=== PATIENT | male | born 1950 | race Hispanic/Latino ===

== ENCOUNTER 2017-02-01 17:10 | Observation (INO) | payer MEDICARE, BC ==
[2017-02-01 17:11] VITALS: BMI 28.1
--- NOTE | 2017-02-01 17:33 | ED PDOC ---
"Arrival/HPI - General Historian: Patient - General Chief Complaint: Alcohol Ingestion Time Seen by Provider: 02/01/17 17:28 - History of Present Illness Narrative History of Present Illness (Text): 02/01/17 17:56 66yo male BIBA for alcohol intoxication. Patient was picked up from a bar. Patient admits drinking alcohol. states he tripped and fell on his face. He denies any current somatic pain. (Cecelia Puentes) Past Medical History - Provider Review Nursing Documentation Reviewed: Yes - Past History Past History: Non-Contributing - Infectious Disease Hx of Infectious Diseases: None - Tetanus Immunization Tetanus Immunization: Unknown - Cardiac Hx Cardiac Disorders: Yes Hx Hypertension: Yes - Pulmonary Hx Respiratory Disorders: Yes Hx Asthma: Yes Hx Chronic Obstructive Pulmonary Disease (COPD): Yes - Neurological Hx Neurological Disorder: No - HEENT Hx HEENT Disorder: Yes Hx Cataracts: Yes Hx Deafness: Yes (left ear/congenital) - Renal Hx Renal Disorder: No - Endocrine/Metabolic Hx Endocrine Disorders: No - Hematological/Oncological Hx Blood Disorders: No - Integumentary Hx Dermatological Disorder: No - Musculoskeletal/Rheumatological Hx Musculoskeletal Disorders: No - Gastrointestinal Hx Gastrointestinal Disorders: No - Genitourinary/Gynecological Hx Genitourinary Disorders: No - Psychiatric Hx Psychophysiologic Disorder: No Hx Substance Use: No - Past Surgical History Past Surgical History: No Previous - Surgical History Hx Appendectomy: Yes Hx Tonsillectomy: Yes Other/Comment: polyps removed from right ear - Anesthesia Hx Anesthesia: Yes Hx Anesthesia Reactions: No Hx Malignant Hyperthermia: No - Suicidal Assessment Feels Threatened In Home Enviroment: No Family/Social History - Physician Review Nursing Documentation Reviewed: Yes Family/Social History: Unknown Family HX Smoking Status: Never Smoked Hx Alcohol Use: Yes Hx Substance Use: No Hx Substance Use Treatment: No Allergies/Home Meds Allergies/Adverse Reactions: Allergies aspirin Adverse Reaction (Verified 02/01/17 17:20) COUGH wheezing ibuprofen [From Motrin] Adverse Reaction (Verified 02/01/17 17:20) COUGH wheezing/eye redness Home Medications: Home Meds Medication Instructions Recorded Confirmed No Known Home Med 02/01/17 02/01/17 Review of Systems - Review of Systems Systems not reviewed;Unavailable: Intoxicated Constitutional: Normal Eyes: Normal ENT: Normal Respiratory: Normal Cardiovascular: Normal Gastrointestinal: Normal Genitourinary Male: Normal Musculoskeletal: Normal Skin: Normal Neurological: Normal Endocrine: Normal Hemo/Lymphatic: Normal Psychiatric: Normal Physical Exam - Physical Exam Physical Exam Limitations: Intoxication Vital Signs Reviewed: Yes Temperature: Afebrile Blood Pressure: Normal Pulse: Regular Respiratory Rate: Normal Appearance: Positive for: Well-Appearing, Non-Toxic, Comfortable, Other ( Alcohol intoxication) Pain Distress: None Mental Status: Positive for: Alert and Oriented X 3 - Systems Exam Head: Present: Atraumatic, Normocephalic Pupils: Present: PERRL Extroacular Muscles: Present: EOMI Conjunctiva: Present: Normal Mouth: Present: Moist Mucous Membranes Neck: Present: Normal Range of Motion Respiratory/Chest: Present: Clear to Auscultation, Good Air Exchange. No: Respiratory Distress, Accessory Muscle Use Cardiovascular: Present: Regular Rate and Rhythm, Normal S1, S2. No: Murmurs Abdomen: Present: Normal Bowel Sounds. No: Tenderness, Distention, Peritoneal Signs Back: Present: Normal Inspection Upper Extremity: Present: Normal Inspection. No: Cyanosis, Edema Lower Extremity: Present: Normal Inspection. No: Edema Neurological: Present: GCS=15, CN II-XII Intact, Speech Normal Skin: Present: Warm, Dry, Normal Color. No: Rashes Psychiatric: Present: Alert, Oriented x 3, Normal Insight, Normal Concentration Vital Signs Temp Pulse Resp BP Pulse Ox 02/02/17 04:45 86 16 140/90 98 02/01/17 19:15 98.3 F 75 18 118/78 95 02/01/17 17:10 98 F 98 H 18 148/92 H 96 Medical Decision Making ED Course and Treatment: 02/01/17 22:17 PT biba for stated history. He was placed in ED for observation pending sobriety. He was neurologically intact in ED. Ambulatory with a steady gait. His alcohol level was 298. The abrasion on his nose was irrigated and bacitracine applied. Head CT IMPRESSION: No acute findings. [facility] | Preliminary Radiology Report PRICING ANALYST (QA) DISCREPANCY? If there is a discrepancy between the preliminary and final interpretation, please notify [facility] via [email or web address]. 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 Thank you for allowing us to participate in the care of your patient. 02/02/17 01:36 Pt sleeping comfortable in ED. Hemodynamically stable in ED. He is pending sobriety. He was endorsed to Dr. Pozo to evaluate and dispo pt. (Cecelia Puentes A) - RAD Interpretation Radiology Orders: 02/01/17 17:55 HEAD W/O CONTRAST [CT] Stat - Medication Orders Current Medication Orders: Discontinued Medications Lorazepam (Ativan) 1 mg IM ONCE STA PRN Reason: Protocol Stop: 02/01/17 22:37 Lorazepam (Ativan) 2 mg IM ONCE STA PRN Reason: Protocol Stop: 02/01/17 22:37 Last Admin: 02/01/17 22:57 Dose: 2 mg ED OBSERVATION Discharge: Yes Date of observation admission: 02/01/17 Time of observation admission: 17:30 - Observation admission statement Patient is being placed in observation because:: Placed on observation pending sobriety (Deloris,Happiness A) - Goals of Observation Goals of observation are:: Placed on observation pending sobriety (Deloris,Happiness A) - Progress Note Progress Note: Pt awake, alert, ambulatory in Emergency department, and requesting to be d/c home. Pt stable for d/c. (Hakan Pozo) Disposition/Present on Arrival - Present on Arrival Any Indicators Present on Arrival: No History of DVT/PE: No History of Uncontrolled Diabetes: No Urinary Catheter: No History of Decub. Ulcer: No History Surgical Site Infection Following: None - Disposition Have Diagnosis and Disposition been Completed?: Yes Disposition Time: 03:00 - Disposition Diagnosis: Alcohol intoxication Disposition: HOME/ ROUTINE Condition: STABLE"
[2017-02-01 19:16] VITALS: TEMP 98.3
[2017-02-01 19:43] LABS: ADD MANUAL DIFF? NO
[2017-02-01 19:59] LABS: ALB/GLOB RATIO 1.4 (1.1-1.8); ALKALINE PHOSPHATASE 60 U/L (38-133); ALT/SGPT 70 U/L (7-56); AST/SGOT 54 U/L (15-59); BILIRUBIN,TOTAL 0.5 mg/dL (0.2-1.3); BLOOD UREA NITROGEN 19 mg/dL (7-21); CALCIUM 8.7 mg/dL (8.4-10.5); CARBON DIOXIDE 29 mmol/L (21-33); CHLORIDE 109 mmol/L (98-107); GFR AFRICAN-AMERICAN > 60; GLUCOSE,RANDOM 101 mg/dL (70-110); POTASSIUM 4.3 mmol/L (3.6-5.0); SODIUM 148 mmol/L (132-148); TOTAL PROTEIN 7.3 g/dL (5.8-8.3)
[2017-02-01 20:06] LABS: BASO # 0.01 K/mm3 (0.0-2.0); BASO % 0.1 % (0.0-3.0); EOS % 0.4 % (1.5-5.0); GRAN # 6.51 (1.4-6.5); GRAN % 69.9 % (50.0-68.0); HEMATOCRIT 47.6 % (42.0-52.0); LYMPH # 2.2 (1.2-3.4); LYMPH % 23.1 % (22.0-35.0); MEAN CELL VOLUME 97.3 fL (80.0-105.0); MEAN CORPUSCULAR HEMOGLOBIN 32.9 pg (25.0-35.0); MEAN CORPUSCULAR HGB CONC 33.8 g/dl (31.0-37.0); MEAN PLATELET VOLUME 9.9 fl (7.0-11.0); MONO # 0.6 (0.1-0.6); MONO % 6.5 % (1.0-6.0); PLATELET COUNT 141 10^3/uL (120.0-450.0); WHITE BLOOD COUNT 9.3 10^3/ul (4.5-11.0)
[2017-02-02 04:46] VITALS: BP 140/90; PULSE 86; RESP 16; O2SAT 98
--- NOTE | 2017-02-02 08:12 | CT ---
PROCEDURE: CT HEAD WITHOUT CONTRAST. HISTORY: head trauma COMPARISON: None available. TECHNIQUE: Axial computed tomography images were obtained through the head/brain without intravenous contrast. Radiation dose: Total exam DLP = 774 mGy-cm. This CT exam was performed using one or more of the following dose reduction techniques: Automated exposure control, adjustment of the mA and/or kV according to patient size, and/or use of iterative reconstruction technique. FINDINGS: HEMORRHAGE: No intracranial hemorrhage. BRAIN: No mass effect or edema. Chronic microvascular ischemic changes. VENTRICLES: Unremarkable. No hydrocephalus. CALVARIUM: Unremarkable. PARANASAL SINUSES: Unremarkable as visualized. No significant inflammatory changes. MASTOID AIR CELLS: Unremarkable as visualized. No inflammatory changes. OTHER FINDINGS: None. IMPRESSION: No intracranial hemorrhage
== END 2017-02-02 04:43 | disposition home or self-care (01) ==
LOC: ED 17:10 → EROBSV 18:06
PROVIDERS: ADMIT Emergency Medicine; ATTEND Emergency Medicine
DX: F10.129 Alcohol abuse with intoxication, unspecified (principal); Y90.8 Blood alcohol level of 240 mg/100 ml or more
CPT/HCPCS: 36415; 70450; 80053; 85025; 96372; 99284; G0378; G0480; J2060

== ENCOUNTER 2017-07-22 11:20 | Inpatient (IN) | payer MEDICARE, BC ==
[2017-07-22 11:49] VITALS: BMI 27.3
[2017-07-22] MEDS ORDERED: Morphine 2 mg/ml ISec IVP STA (11:49)
[2017-07-22] MEDS ORDERED: Pantoprazole 40 MG in Sodium Chloride 0.9% 100 ML IV STA (11:49)
--- NOTE | 2017-07-22 12:03 | ED PDOC ---
Arrival/HPI - General Chief Complaint: Abdominal Pain Time Seen by Provider: 07/22/17 11:37 Historian: Patient - History of Present Illness Narrative History of Present Illness (Text): 07/22/17 12:00 66yo male with PMhx of hypertension and COPD present with complaint of sudden LUQ abdominal pain this morning. States pain is sharp and constant. Denies nausea, vomiting, diarrhea, melena, hematochezia, hematemesis, chest pain, SOB, tearing/ripping upper back pain, any other complaint. Past Medical History - Provider Review Nursing Documentation Reviewed: Yes - Past History Past History: Non-Contributing - Infectious Disease Hx of Infectious Diseases: None - Tetanus Immunization Tetanus Immunization: Unknown - Cardiac Hx Cardiac Disorders: Yes Hx Hypertension: Yes - Pulmonary Hx Respiratory Disorders: Yes Hx Asthma: Yes Hx Chronic Obstructive Pulmonary Disease (COPD): Yes - Neurological Hx Neurological Disorder: No - HEENT Hx HEENT Disorder: Yes Hx Cataracts: Yes Hx Deafness: Yes (left ear/congenital) - Renal Hx Renal Disorder: No - Endocrine/Metabolic Hx Endocrine Disorders: No - Hematological/Oncological Hx Blood Disorders: No - Integumentary Hx Dermatological Disorder: No - Musculoskeletal/Rheumatological Hx Musculoskeletal Disorders: No - Gastrointestinal Hx Gastrointestinal Disorders: No - Genitourinary/Gynecological Hx Genitourinary Disorders: No - Psychiatric Hx Psychophysiologic Disorder: No Hx Substance Use: No - Past Surgical History Past Surgical History: No Previous - Surgical History Hx Appendectomy: Yes Hx Tonsillectomy: Yes Other/Comment: polyps removed from right ear - Anesthesia Hx Anesthesia: Yes Hx Anesthesia Reactions: No Hx Malignant Hyperthermia: No - Suicidal Assessment Feels Threatened In Home Enviroment: No Family/Social History - Physician Review Nursing Documentation Reviewed: Yes Family/Social History: Unknown Family HX Smoking Status: Never Smoked Hx Alcohol Use: Yes Hx Substance Use: No Hx Substance Use Treatment: No Allergies/Home Meds Allergies/Adverse Reactions: Allergies aspirin Adverse Reaction (Verified 07/22/17 15:14) COUGH wheezing ibuprofen [From Motrin] Adverse Reaction (Verified 07/22/17 15:14) COUGH wheezing/eye redness Home Medications: Home Meds Medication Instructions Recorded Confirmed Aclidinium [place] [Tudorza 400 mcg IH DAILY 07/22/17 07/22/17 Pressair] Albuterol 0.083% [Albuterol 3 ml IH Q6 PRN 07/22/17 07/22/17 Sulfate 3 Ml] Atorvastatin [Lipitor] 40 mg PO DAILY 07/22/17 07/22/17 Fluticasone/Vilanterol [Breo 1 each IH DAILY 07/22/17 07/22/17 Ellipta 100-25 Mcg INH] Metoprolol Succinate [Toprol XL] 25 mg PO DAILY 07/22/17 07/22/17 Voriconazole [Vfend] 200 mg PO BID 07/22/17 07/22/17 amLODIPine [Norvasc] 10 mg PO DAILY 07/22/17 07/22/17 predniSONE [Prednisone] 20 mg PO DAILY 07/22/17 07/22/17 Review of Systems - Physician Review All systems were reviewed & negative as marked: Yes - Review of Systems Constitutional: Normal Eyes: Normal ENT: Normal Respiratory: Normal Cardiovascular: Normal Gastrointestinal: Abdominal Pain. absent: Constipation, Diarrhea, Nausea, Vomiting, Hematochezia, Hematemesis Genitourinary Male: Normal Musculoskeletal: Normal Skin: Normal Neurological: Normal Endocrine: Normal Hemo/Lymphatic: Normal Psychiatric: Normal Physical Exam Vital Signs Reviewed: Yes Vital Signs Temp Pulse Resp BP Pulse Ox 07/22/17 17:18 98 H 20 171/106 H 95 07/22/17 16:02 97.7 F 91 H 18 167/100 H 07/22/17 11:46 97.7 F 91 H 18 167/100 H 98 Temperature: Afebrile Blood Pressure: Hypertensive Pulse: Regular Respiratory Rate: Normal Appearance: Positive for: Well-Appearing, Non-Toxic, Uncomfortable Pain Distress: Moderate Mental Status: Positive for: Alert and Oriented X 3 - Systems Exam Head: Present: Atraumatic, Normocephalic Pupils: Present: PERRL Extroacular Muscles: Present: EOMI Conjunctiva: Present: Normal Mouth: Present: Moist Mucous Membranes Neck: Present: Normal Range of Motion Respiratory/Chest: Present: Clear to Auscultation, Good Air Exchange. No: Respiratory Distress, Accessory Muscle Use Cardiovascular: Present: Regular Rate and Rhythm, Normal S1, S2. No: Murmurs Abdomen: Present: Tenderness (LUQ tenderness), Normal Bowel Sounds, Guarding, Other (soft). No: Distention, Peritoneal Signs, Rebound, McBurney's Point Tender, Rovsing's Sign Present Back: Present: Normal Inspection Upper Extremity: Present: Normal Inspection. No: Cyanosis, Edema Lower Extremity: Present: Normal Inspection. No: Edema Neurological: Present: GCS=15, CN II-XII Intact, Speech Normal Skin: Present: Warm, Dry, Normal Color. No: Rashes Psychiatric: Present: Alert, Oriented x 3, Normal Insight, Normal Concentration Medical Decision Making ED Course and Treatment: 07/22/17 20:27 66yo male present with stated history. He was in pain in ED and his pain was controlled in ED temporary with medication Lab was nonspecific. Abdominal/Pelvis CT IMPRESSION: Left lower renal pole intra collecting system calculus cluster measuring up to 6 mm as detailed above. No hydronephrosis. No ureteral calculi an no bladder calculi Less dense sub cm hyperdensity posterior left upper renal pole -an incidental tiny hemorrhagic lesion benign and/or malignant is 1 consideration. Less dense nonspecific renal parenchymal calcification here is another. The appearance is indeterminate. Consider targeted ultrasound Exophytic right lower renal pole cystic mass renal ultrasound for further characterisation recommended Left lower lobe subsegmental consolidation ; consider CT chest for further evaluation Atherosclerotic vascular calcifications s Tatus post appendectomy. Blood culture is pending PT started on Zithromax and Rocephin to cover for CAP. The radiologist recommended chest CT and Ct angio was ordered secondary to elevated D dimer. Chest CT IMPRESSION: . No pulmonary embolus. Posteromedial left lower lobe segmental consolidation/atelectasis. A more proximal endobronchial occluding lesion needs to be considered. - a mucus plug is not excluded. No gross extrinsic compression masses noted. Follow-up recommended probably right lower lobe posteromedial strandy and slightly nodular postinflammatory like changes. Follow-up here also advised. Case was DW Dr. Shankar and pt was admitted to his service. - Lab Interpretations Lab Results: 07/22/17 11:40 07/22/17 11:40 Lab Results 07/22/17 13:45: Lactic Acid 1.8 07/22/17 13:45: D-Dimer, Quantitative 435 H 07/22/17 11:40: pO2 67 H, VBG pH 7.44 H, VBG pCO2 44.0, VBG HCO3 29.9 H, VBG Total CO2 31.3 H, VBG O2 Sat (Calc) 93.6 H, VBG Base Excess 5.0 H, VBG Potassium 5.2, Sodium 139.0, Chloride 104.0, Glucose 93, Lactate 2.1, FiO2 21.0 , Venous Blood Potassium 5.2 07/22/17 11:40: Sodium 140, Chloride 103, Potassium 3.7, Carbon Dioxide 28, Anion Gap 13, BUN 18, Creatinine 0.8, Est GFR ( Amer) > 60, Est GFR (Non- Af Amer) > 60, Random Glucose 91, Calcium 8.8, Total Bilirubin 0.6, AST 30, ALT 31, Alkaline Phosphatase 70, Lactate Dehydrogenase 484, Total Creatine Kinase 107, Troponin I < 0.01, Total Protein 7.6, Albumin 4.5, Globulin 3.1, Albumin/ Globulin Ratio 1.4, Amylase 55, Lipase 54 07/22/17 11:40: PT 10.7, INR 0.97, APTT 24.0 L 07/22/17 11:40: WBC 9.5, RBC 5.03, Hgb 16.2, Hct 47.0, MCV 93.4, MCH 32.2, MCHC 34.5, RDW 14.0, Plt Count 151, MPV 10.1, Gran % 64.9, Lymph % (Auto) 23.6, [place] % (Auto) 6.6 H, Eos % (Auto) 4.5, Baso % (Auto) 0.4, Gran # 6.15, Lymph # 2.2, [place] # 0.6, Eos # 0.4, Baso # 0.04 - RAD Interpretation Radiology Orders: 07/22/17 11:49 ABD & PELVIS W/O PO OR IV CONT [CT] Stat 07/22/17 14:28 ANGIO CHEST PE PROTOCOL [CT] Stat - Medication Orders Current Medication Orders: Acetaminophen (Tylenol 325mg Tab) 650 mg PO Q6H PRN PRN Reason: Pain, severe (8-10) Acetylcysteine (Acetylcysteine 20%) 4 ml IH Q6 [facility] Last Admin: 07/22/17 19:54 Dose: 4 ml Benzonatate (Tessalon Perles) 100 mg PO TID PRN PRN Reason: Cough Chlordiazepoxide (Librium) 25 mg PO Q6 [facility] PRN Reason: Taper Stop: 07/26/17 19:59 Chlordiazepoxide (Librium) 25 mg PO Q4H PRN PRN Reason: Withdrawl Clonidine HCl (Catapres) 0.1 mg PO Q6H PRN PRN Reason: SBP>=170 &/OR DBP>=100MMHG Enoxaparin Sodium (Lovenox) 40 mg SC DAILY [facility] PRN Reason: Protocol Folic Acid (Folic Acid) 1 mg PO DAILY [facility] Hydromorphone HCl (Dilaudid) 0.5 mg IVP Q4H PRN PRN Reason: Pain, moderate (4-7) Multivitamins/Vitamin C 10 ml/Thiamine HCl 100 mg/ Folic Acid 1 mg/ Sodium Chloride 1,011.2 mls @ 100 mls/hr IV .Q10H7M ONE Stop: 07/23/17 01:11 Last Admin: 07/22/17 16:49 Dose: 100 mls/hr eMAR Start Stop Document 07/22/17 16:49 KKL (Rec: 07/22/17 16:49 KK [id number]) Intravenous Solution Start Date 07/22/17 Start Time 16:30 Doxycycline Hyclate 100 mg/ (Sodium Chloride) 100 mls @ 100 mls/hr IVPB Q12 [facility] PRN Reason: Protocol Ceftriaxone Sodium (Rocephin 1 Gram Ivpb (D5w)) 1 gm in 100 mls @ 100 mls/hr IVPB DAILY [facility] PRN Reason: Protocol Piperacillin Sod/Tazobactam Sod (Zosyn 3.375 In Ns 100ml) 100 mls @ 200 mls/hr IVPB Q6 [facility] PRN Reason: Protocol Stop: 07/23/17 00:29 Last Admin: 07/22/17 18:53 Dose: 200 mls/hr eMAR Start Stop Document 07/22/17 18:53 LO (Rec: 07/22/17 18:54 LO [id number]) Intravenous Solution Start Date 07/22/17 Start Time 18:54 End Date 07/22/17 End time 19:24 Total Infusion Time 30 Levalbuterol HCl (Xopenex) 0.63 mg IH Q6 [facility] Last Admin: 07/22/17 19:54 Dose: 0.63 mg Lorazepam (Ativan) 0.5 mg IVP Q6 PRN; Protocol PRN Reason: Symptoms of alcohol withdrawl Methylprednisolone (Solu-Medrol) 40 mg IVP Q8H [facility] Ondansetron HCl (Zofran Inj) 4 mg IVP Q4H PRN PRN Reason: Nausea/Vomiting Pantoprazole Sodium (Protonix Ec Tab) 40 mg PO 0600,1600 [facility] Thiamine HCl (Vitamin B1 Inj) 100 mg IV DAILY [facility] Stop: 07/25/17 10:01 Discontinued Medications Acetylcysteine (Acetylcysteine 20%) 4 ml IH Q6 [facility] Albuterol/Ipratropium (Duoneb 3 Mg/0.5 Mg (3 Ml) Ud) 3 ml IH STAT STA Stop: 07/22/17 13:42 Last Admin: 07/22/17 14:23 Dose: 3 ml Albuterol/Ipratropium (Duoneb 3 Mg/0.5 Mg (3 Ml) Ud) 3 ml IH Q2 PRN PRN Reason: Shortness of Breath Stop: 07/22/17 20:01 Hydromorphone HCl (Dilaudid) 2 mg IVP STAT STA Stop: 07/22/17 13:21 Last Admin: 07/22/17 13:20 Dose: 2 mg [facility] [place] Pain Assessment Document 07/22/17 13:20 KK (Rec: 07/22/17 13:36 [id number] Pain Reassessment Is this a pain reassessment? Yes Sleep Is patient sleeping during reassessment? No Presence of Pain Presence of Pain Yes Pain Scale Used Pain Scale Used Numeric Location Left, Right or Bilateral Left Upper or Lower Upper Pain Location Body Site Abdomen Description Intensity of Pain at present 10 IVP Administration Document 07/22/17 13:20 KK (Rec: 07/22/17 13:36 [id number][facility] Charges for Administration # of IVP Administrations 2 Re-Assess: [facility] [place] Pain Assessment Document 07/22/17 14:00 KK (Rec: 07/22/17 15:30 [id number][facility] Pain Reassessment Is this a pain reassessment? Yes Sleep Is patient sleeping during reassessment? No Presence of Pain Presence of Pain Yes Pain Scale Used Pain Scale Used Numeric Location Left, Right or Bilateral Left Upper or Lower Upper Pain Location Body Site Abdomen Description Description Stabbing Intensity of Pain at present 5 Acceptable Level of Pain 3 Pantoprazole Sodium 40 mg/ (Sodium Chloride) 100 mls @ 400 mls/hr IV STAT STA Stop: 07/22/17 12:03 Last Admin: 07/22/17 12:16 Dose: 400 mls/hr eMAR Start Stop Document 07/22/17 12:16 KKL (Rec: 07/22/17 12:16 [id number]) Intravenous Solution Start Date 07/22/17 Start Time 12:16 Sodium Chloride (Sodium Chloride 0.9%) 1,000 mls @ 250 mls/hr IV .Q4H ONE Stop: 07/22/17 17:40 Last Admin: 07/22/17 14:24 Dose: 250 mls/hr eMAR Start Stop Document 07/22/17 14:24 KKL (Rec: 07/22/17 14:24 [id number]) Intravenous Solution Start Date 07/22/17 Start Time 14:00 End time 14:15 Ceftriaxone Sodium (Rocephin 1 Gram Ivpb (D5w)) 1 gm in 100 mls @ 200 mls/hr IVPB STAT STA PRN Reason: Protocol Stop: 07/22/17 14:27 Last Admin: 07/22/17 14:23 Dose: 200 mls/hr eMAR Start Stop Document 07/22/17 14:23 KKL (Rec: 07/22/17 14:23 [id number]) Intravenous Solution Start Date 07/22/17 Start Time 14:23 Levalbuterol HCl (Xopenex) 0.63 mg IH Q6 [facility] Methylprednisolone (Solu-Medrol) 125 mg IVP STAT STA Stop: 07/22/17 13:43 Last Admin: 07/22/17 14:24 Dose: 125 mg IVP Administration Document 07/22/17 14:24 KK (Rec: 07/22/17 14:24 [id number]) Charges for Administration # of IVP Administrations 1 Morphine Sulfate (Morphine) 4 mg IVP STAT STA Stop: 07/22/17 11:50 Last Admin: 07/22/17 12:14 Dose: 4 mg MAR Pain Assessment Document 07/22/17 12:14 KKL (Rec: 07/22/17 12:15 [id number] Pain Reassessment Is this a pain reassessment? No Sleep Is patient sleeping during reassessment? No Presence of Pain Presence of Pain Yes Pain Scale Used Pain Scale Used Numeric Location Left, Right or Bilateral Left Upper or Lower Upper Pain Location Body Site Abdomen Description Description Stabbing Intensity of Pain at present 10 Pain Behavior Guarding Irritability Grasping Site Restlessness Perspiration Facial Grimacing IVP Administration Document 07/22/17 12:14 [facility] (Rec: 07/22/17 12:15 [id number]) Charges for Administration # of IVP Administrations 1 Re-Assess: MARIBETH Pain Assessment Document 07/22/17 13:14 [facility] (Rec: 07/22/17 13:35 [id number]) Pain Reassessment Is this a pain reassessment? Yes Sleep Is patient sleeping during reassessment? No Presence of Pain Presence of Pain Yes Pain Scale Used Pain Scale Used Numeric Location Left, Right or Bilateral Left Upper or Lower Upper Pain Location Body Site Abdomen Description Intensity of Pain at present 10 Pneumococcal Polyvalent Vaccine (Pneumovax 23 Vaccine) 0.5 ml IM .ONCE ONE Stop: 07/22/17 16:30 Disposition/Present on Arrival - Present on Arrival Any Indicators Present on Arrival: No History of DVT/PE: No History of Uncontrolled Diabetes: No Urinary Catheter: No History of Decub. Ulcer: No History Surgical Site Infection Following: None - Disposition Have Diagnosis and Disposition been Completed?: Yes Diagnosis: Pneumonia, Renal colic Disposition: HOSPITALIZED Disposition Time: 14:00 Patient Problems: Current Active Problems Problem Status Onset Pneumonia Acute Renal colic Acute Condition: [facility]
[2017-07-22 12:40] LABS: BASO # 0.04 K/mm3 (0.0-2.0); BASO % 0.4 % (0.0-3.0); EOS # 0.4 (0.0-0.7); EOS % 4.5 % (1.5-5.0); GRAN # 6.15 (1.4-6.5); GRAN % 64.9 % (50.0-68.0); LYMPH # 2.2 (1.2-3.4); LYMPH % 23.6 % (22.0-35.0); MEAN CELL VOLUME 93.4 fl (80.0-105.0); MEAN CORPUSCULAR HEMOGLOBIN 32.2 pg (25.0-35.0); MEAN CORPUSCULAR HGB CONC 34.5 g/dl (31.0-37.0); MEAN PLATELET VOLUME 10.1 fl (7.0-11.0); MONO # 0.6 (0.1-0.6); MONO % 6.6 % (1.0-6.0); WHITE BLOOD COUNT 9.5 10^3/ul (4.5-11.0)
[2017-07-22 12:44] LABS: VENOUS BLOOD PH 7.44 (7.32-7.43)
[2017-07-22 12:52] LABS: INR 0.97 (0.93-1.08)
[2017-07-22 13:03] LABS: TROPONIN I < 0.01 ng/mL
[2017-07-22 13:05] LABS: ALB/GLOB RATIO 1.4 (1.1-1.8); ALKALINE PHOSPHATASE 70 U/L (38-126); ALT/SGPT 31 U/L (7-56); AMYLASE 55 U/L (35-125); AST/SGOT 30 U/L (17-59); BILIRUBIN,TOTAL 0.6 mg/dL (0.2-1.3); BLOOD UREA NITROGEN 18 mg/dL (7-21); CALCIUM 8.8 mg/dL (8.4-10.5); CARBON DIOXIDE 28 mmol/L (21-33); CHLORIDE 103 mmol/L (98-107); GFR AFRICAN-AMERICAN > 60; GLUCOSE,RANDOM 91 mg/dL (70-110); POTASSIUM 3.7 mmol/L (3.6-5.0); SODIUM 140 mmol/L (132-148); TOTAL PROTEIN 7.6 g/dL (5.8-8.3)
--- NOTE | 2017-07-22 13:18 | CT ---
PROCEDURE: CT Abdomen and Pelvis without intravenous contrast HISTORY: abdominal pain COMPARISON: None. TECHNIQUE: Technique. Contrast Dose: Radiation dose: Total exam DLP = 776 mGy-cm. This CT exam was performed using one or more of the following dose reduction techniques: Automated exposure control, adjustment of the mA and/or kV according to patient size, and/or use of iterative reconstruction technique. FINDINGS: LOWER THORAX: There is consolidation/atelectasis in the posteromedial left lung base a proximal endobronchial or extrinsic compression lesion for this is possible. There is trace punctate hyperdensities within it. An aspiration pneumonitis with or without atelectasis is not excluded. LIVER: Unremarkable. No gross lesion or ductal dilatation. GALLBLADDER AND BILE DUCTS: Unremarkable. PANCREAS: Unremarkable. No gross lesion or ductal dilatation. SPLEEN: Tiny splenic granuloma ADRENALS: Unremarkable. No mass. KIDNEYS AND URETERS: There low-density probable calcifications in the left upper renal pole cortex versus a tiny 2 mm hemorrhagic cyst or other hemorrhagic lesion. The tiny size (axis series 2, image 53 is too small to accurately characterize. A calculus cluster in the anterior left lower renal pole collecting system is suggested. The calculus cluster is approximately 6 cm. . It may represent a heterogeneous single calculus irregular marginated measuring 6 mm or 2 contiguous calculi at least the larger being 5 mm in size No hydronephrosis. No solid mass. Off the lower pole of the right kidney posterior exophytic 3 cm cystic appearing mass is suggested. Hounsfield units here vary between 5 and 35 over this right exophytic cystic appearing mass. Consider renal ultrasound VASCULATURE: Atherosclerotic vascular calcifications. No aortic aneurysm. BOWEL: Unremarkable. No obstruction. No gross mural thickening. APPENDIX: Nonvisualized appendix. History of prior appendectomy. No regional inflammatory changes here suggested PERITONEUM: Unremarkable. No free fluid. No free air. LYMPH NODES: Unremarkable. No enlarged lymph nodes. BLADDER: Unremarkable. REPRODUCTIVE: Unremarkable. BONES: No acute fracture. OTHER FINDINGS: There is asymmetrical focal prominence of the left anterior abdominal wall musculature (Versus atrophy contralateral right musculature. This focal asymmetries noted on axial series 2, image 65. Surrounding soft tissues subcutaneous tissues appear unremarkable. Significance, if any -is not known is not known. IMPRESSION: Left lower renal pole intra collecting system calculus cluster measuring up to 6 mm as detailed above. No hydronephrosis. No ureteral calculi an no bladder calculi Less dense sub cm hyperdensity posterior left upper renal pole -an incidental tiny hemorrhagic lesion benign and/or malignant is 1 consideration. Less dense nonspecific renal parenchymal calcification here is another. The appearance is indeterminate. Consider targeted ultrasound Exophytic right lower renal pole cystic mass renal ultrasound for further characterisation recommended Left lower lobe subsegmental consolidation ; consider CT chest for further evaluation Atherosclerotic vascular calcifications s Tatus post appendectomy.
[2017-07-22] MEDS ORDERED: HYDROmorphone 2 mg/ml ISec IVP STA (13:20)
[2017-07-22] MEDS ORDERED: HYDROmorphone 2 mg/ml ISec ONE (13:22)
[2017-07-22] MEDS ORDERED: Albuterol-Ipratrop 3 mg / 0.5 (3 ml) UD ONE (13:39)
[2017-07-22] MEDS ORDERED: Albuterol-Ipratrop 3 mg / 0.5 (3 ml) UD IH STA (13:41)
[2017-07-22] MEDS ORDERED: Sodium Chloride 0.9% 1,000 ML IV ONE (13:41)
[2017-07-22] MEDS ORDERED: cefTRIAXone 1 gm 1 GM/100 ML BAG IVPB STA (13:58)
[2017-07-22 14:25] LABS: LIPASE 54 U/L (23-300)
[2017-07-22] MEDS ORDERED: Multivitamin (MVI) 10 ML, Thiamine 100 MG, Folic Acid 1 MG in Sodium Chloride 0.9% 1,00... IV ONE (15:05)
[2017-07-22] MEDS ORDERED: Albuterol-Ipratrop 3 mg / 0.5 (3 ml) UD IH PRN (15:21)
[2017-07-22 15:25] LABS: PH,URINE 6.5 (4.7-8.0); URINE BILIRUBIN NEGATIVE (NEGATIVE); URINE BLOOD NEGATIVE (NEGATIVE); URINE GLUCOSE (UA) NEGATIVE (NEGATIVE); URINE KETONE NEGATIVE (NEGATIVE); URINE LEUKOCYTE ESTERASE NEGATIVE Leu/uL (NEGATIVE); URINE PROTEIN NEGATIVE mg/dL (<30 mg/dL); URINE UROBILINOGEN 0.2 E.U./dL (<1 E.U./dL)
[2017-07-22 15:26] LABS: URINE APPEARANCE CLEAR (CLEAR); URINE COLOR YELLOW (YELLOW)
[2017-07-22] MEDS ORDERED: Iodixanol 320 MG/ML 100 ML BOTTLE IV ONE (15:39)
--- NOTE | 2017-07-22 16:11 | CP.PCM.HP ---
History of Present Illness - History of Present Illness History of Present Illness: CC: sudden abdominal pain HPI: 66 y/o alcoholic male with PMH COPD, HTN, Asthma, cataracts, L ear deafness , and CAD without stents who presents to the ED with sudden onset of LUQ abdominal pain after coughing hard this morning. He says he has never had this before. Patient says he has had a cough for 2 weeks productive of yellow sputum. He says after coughing this morning he felt a severe 10/10 sharp pain in his LUQ and noticed a hard mass protruding from his side. He says he had a bronchoscope last year and was diagnosed with a fungal infection in his lungs which he take voriconazole for. Patient admits to headache, dizziness, tinnitus , SOB. He denies sore throat, chest pain, N&V, D&C, LE pain, and LE swelling. PMH: COPD, HTN, Asthma, L ear deafness, cataracts, and CAD without stents (says he had a stress test but unsure of results) PSH: appendectomy, colonoscopy Meds: Atorvastatin, Amlodipine, metoprolol, prednisone, voriconazole, brilenta Allergies: ASA, ibuprofen Soc: Former smoker (14 years ago), Drinks 1 pint of vodka and beer 4-5x/week, denies elicit drug use Present on Admission - Present on Admission Any Indicators Present on Admission: No Review of Systems - Review of Systems All systems: reviewed and no additional remarkable complaints except (as per HPI ) Past Patient History - Infectious Disease Hx of Infectious Diseases: None - Tetanus Immunizations Tetanus Immunization: Unknown - Past Social History Smoking Status: Never Smoked - CARDIAC Hx Cardiac Disorders: Yes Hx Hypertension: Yes - PULMONARY Hx Respiratory Disorders: Yes Hx Asthma: Yes Hx Chronic Obstructive Pulmonary Disease (COPD): Yes - NEUROLOGICAL Hx Neurological Disorder: No - HEENT Hx HEENT Problems: Yes Hx Cataracts: Yes Hx Deafness: Yes (left ear/congenital) - RENAL Hx Chronic Kidney Disease: No - ENDOCRINE/METABOLIC Hx Endocrine Disorders: No - HEMATOLOGICAL/ONCOLOGICAL Hx Blood Disorders: No - INTEGUMENTARY Hx Dermatological Problems: No - MUSCULOSKELETAL/RHEUMATOLOGICAL Hx Musculoskeletal Disorders: No - GASTROINTESTINAL Hx Gastrointestinal Disorders: No - GENITOURINARY/GYNECOLOGICAL Hx Genitourinary Disorders: No - PSYCHIATRIC Hx Psychophysiologic Disorder: No Hx Substance Use: No - SURGICAL HISTORY Hx Appendectomy: Yes Hx Tonsillectomy: Yes Other/Comment: polyps removed from right ear - ANESTHESIA Hx Anesthesia: Yes Hx Anesthesia Reactions: No Hx Malignant Hyperthermia: No Meds Allergies/Adverse Reactions: Allergies Allergy/AdvReac Type Severity Reaction Status Date / Time aspirin AdvReac COUGH Verified 07/22/17 15:14 ibuprofen [From Motrin] AdvReac COUGH Verified 07/22/17 15:14 Physical Exam - Constitutional Appears: Non-toxic, In Acute Distress, Unkempt - Head Exam Head Exam: ATRAUMATIC, NORMOCEPHALIC - Eye Exam Eye Exam: EOMI, Normal appearance - ENT Exam ENT Exam: Mucous Membranes Moist - Respiratory Exam Respiratory Exam: Rales, Wheezes, Respiratory Distress. absent: Rhonchi, Stridor Additional comments: tripoding - Cardiovascular Exam Cardiovascular Exam: RRR, +S1, +S2. absent: Bradycardia, Tachycardia - GI/Abdominal Exam GI & Abdominal Exam: Hypoactive Bowel Sounds. absent: Distended, Firm Additional comments: 6cm x 3cm hard, tender mass of the abdominal wall below the ribs in the LUQ - Extremities Exam Extremities exam: Positive for: normal inspection. Negative for: calf tenderness, pedal edema - Neurological Exam Neurological exam: Alert, Oriented x3 - Psychiatric Exam Psychiatric exam: Anxious Additional comments: tremor in hands liekly from alcohol withdrawal - Skin Skin Exam: Dry, Intact, Normal Color, Warm Results - Vital Signs Recent Vital Signs: Last Vital Signs Temp 97.7 F 07/22/17 11:46 Pulse 91 H 07/22/17 11:46 Resp 18 07/22/17 11:46 BP 167/100 H 07/22/17 11:46 Pulse Ox 98 07/22/17 11:46 - Labs Result Diagrams: 07/22/17 11:40 07/22/17 11:40 Labs: Laboratory Results - last 24 hr 07/22/17 15:20 Urine Color Yellow Urine Appearance Clear Urine pH 6.5 Ur Specific [place] 1.020 Urine Protein Negative Urine Glucose (UA) Negative Urine Ketones Negative Urine Blood Negative Urine Nitrate Negative Urine Bilirubin Negative Urine Urobilinogen 0.2 Ur Leukocyte Esterase Negative Assessment & Plan - Assessment and Plan (Free Text) Assessment: LUQ pain 2/2 PNA pleural irritation vs muscular vs kidney stone Doubt cardiac origin Has ruled out pancreatitis - CT chest: Poss asp pneumotis splenic granulma consolidation post left lower lobe with hyperdensisties within it kidney stone and cyst (consider renal U/S) - urology consulted (Dr. Kellogg) - recs appreciated - PSA asymmetrical focal prominence of the left anterior abdominal wall musculature - f/u CTA chest - procalcitonin - sputum culture - septic work up (blood cx. urine cx. cbc, sputum, vbg lactate, proc, cxr, uring ag legionella, mycoplasma) - i/o, urine strain -BNP - GI consulted ([facility]) - recs appreciated Cough with COPD exac and resp alkalosis - rocephic, doxy, zosyn - ID consulted ([facility]) - recs appreciated -mucomyst and xopenex - duonebs DARRON and PRN - Solu medrol 40 Alcohol dependence - CIWA protocol -banana bag -thaimine x3 doses -folic acid -ativan prn -UDS elevated d-dimer - U/S doppler LEs bilat HTN 167/100 - poss transient Prophylactic Measures - Lovernox - protonix
[2017-07-22] MEDS ORDERED: Influenza Vaccine 60 mcg/0.5 mL SYR (4YR UP) IM ONE (16:29)
[2017-07-22] MEDS ORDERED: Pneumococcal 23-Valent Vaccine IM ONE (16:29)
[2017-07-22] MEDS: Levalbuterol 0.63 MG/3 ML Inhal Soln UD IH SCH ×2 (16:50→19:54)
--- NOTE | 2017-07-22 16:59 | CT ---
PROCEDURE: CT Chest with contrast (Pulmonary Angiogram) HISTORY: Elevated d dimer COMPARISON: None available. TECHNIQUE: Axial computed tomography images were obtained of the chest in the pulmonary arterial phase of enhancement. Coronal and sagittal reformatted images were created and reviewed. Intravenous contrast dose: 100 mL Visipaque 320 Radiation dose: Total exam DLP = 686 mGy-cm. This CT exam was performed using one or more of the following dose reduction techniques: Automated exposure control, adjustment of the mA and/or kV according to patient size, and/or use of iterative reconstruction technique. FINDINGS: PULMONARY ARTERIES: Unremarkable. No pulmonary embolism. AORTA: No acute findings. No thoracic aortic aneurysm. ascending aorta measures 3.8 cm. No aneurysmal dilatation of the thoracic level noted LUNGS: There is consolidation/atelectasis of the posteromedial left lower lobe segment a more proximal endobronchial lesion here needs to be considered there is some sharp cut off the area on axial series 5, image 68 a mucus plug is 1 consideration. Other etiologies are not excluded. Follow-up is recommended There is strandy and minimally nodular fibrotic like changes in the right medial lower lobe postinflammatory changes are believe most likely. Consider rechecking this in 6 months to assess stability of the nodular component which is approximately 1 cm in size (axial series 5, image 109) PLEURAL SPACES: Some pleural thickening borders the left posteromedial segmental consolidation/atelectasis. . No effusion or pneuomothorax. HEART: Mild cardiomegaly. No significant pericardial effusion. Coronary artery calcifications with or without stents it LYMPH NODES: No suspicious lymphadenopathy. Shotty benign-appearing lymph nodes noted. BONES, CHEST WALL: Unremarkable. No fracture or destructive lesion OTHER FINDINGS: Unremarkable. IMPRESSION: . No pulmonary embolus. Posteromedial left lower lobe segmental consolidation/atelectasis. A more proximal endobronchial occluding lesion needs to be considered. - a mucus plug is not excluded. No gross extrinsic compression masses noted. Follow-up recommended probably right lower lobe posteromedial strandy and slightly nodular postinflammatory like changes. Follow-up here also advised.
--- NOTE | 2017-07-22 17:20 | RAD ---
HISTORY: COMPARISON: 05/18/2015. TECHNIQUE: Chest PA and lateral FINDINGS: LINES AND TUBES: None. LUNG AND PLEURA: The lungs are well inflated and clear. HEART AND MEDIASTINUM: The heart is not enlarged. The hilar and mediastinal contours are within normal limits. SKELETAL STRUCTURES: The bony structures are within normal limits for the patient's age. VISUALIZED UPPER ABDOMEN: Normal. OTHER FINDINGS: None. IMPRESSION: No active pulmonary disease.
[2017-07-22 17:25] LABS: VENOUS BLOOD GAS BASE EXCESS -2.2 mmol/L (0.0-2.0); VENOUS BLOOD PH 7.34 (7.32-7.43)
[2017-07-22] MEDS ORDERED: Acetylcysteine 20% Inhal Soln (4ml) IH SCH (18:00)
[2017-07-22] MEDS ORDERED: Levalbuterol 0.63 MG/3 ML Inhal Soln UD IH SCH (18:00)
[2017-07-22] MEDS: Piperacillin/Tazobact 3.375 gm 100 ML IVPB SCH (18:53)
[2017-07-22] MEDS: Acetylcysteine 20% Inhal Soln (4ml) IH SCH (19:54)
[2017-07-22] MEDS ORDERED: MethylPREDNISolone 40 mg Vial IVP SCH (20:00)
[2017-07-22] MEDS: HYDROmorphone 0.5 mg/0.5 ml ISec IVP PRN (20:47)
[2017-07-22 21:09] LABS: FREE T4 1.62 ng/dL (0.78-2.19)
[2017-07-22 21:24] LABS: THYROID STIMULATING HORMONE 0.52 mIU/mL (0.46-4.68)
--- NOTE | 2017-07-22 22:16 | US ---
HISTORY: Leg pain and swelling. Evaluate for DVT PHYSICIAN(S): Amari Iglesias MD. TECHNIQUE: Duplex sonography and color-flow Doppler with graded compression were used to evaluate the deep venous systems of both lower extremities. FINDINGS: The visualized deep venous systems of both lower extremities are sonographically normal and compressible. Normal wave forms and augmentation are seen. There is no sonographic evidence for deep venous thrombosis in the visualized segments of both lower extremities. IMPRESSION: No sonographic evidence for deep venous thrombosis in the visualized segments of both lower extremities.
--- NOTE | 2017-07-22 23:21 | CARD ---
APPROVED REPORT EKG Measurement Heart [id number] <Conclusion> Normal sinus rhythm Possible Left atrial enlargement Nonspecific ST and T wave abnormality Abnormal ECG
[2017-07-23] MEDS: Piperacillin/Tazobact 3.375 gm 100 ML IVPB SCH (00:02)
[2017-07-23 00:27] LABS: FREE T4 1.34 ng/dL (0.78-2.19); T4 9.1 ug/dL (5.5-11.0)
[2017-07-23 00:41] LABS: PROSTATE SPECIFIC ANTIGEN 1.3 ng/mL (0.00-2.5)
[2017-07-23] MEDS: Acetylcysteine 20% Inhal Soln (4ml) IH SCH ×3 (01:02→13:20)
[2017-07-23] MEDS: Levalbuterol 0.63 MG/3 ML Inhal Soln UD IH SCH ×4 (01:02→19:37)
[2017-07-23] MEDS: POLYETHYLENE GLYCOL 3350 17 GM/Dose PACKET PO SCH ×3 (01:16→17:32)
[2017-07-23] MEDS: HYDROmorphone 0.5 mg/0.5 ml ISec IVP PRN ×2 (04:27→20:59)
[2017-07-23] MEDS: MethylPREDNISolone 40 mg Vial IVP SCH ×3 (05:31→21:02)
[2017-07-23] MEDS: Pantoprazole 40 mg EC Tab PO SCH ×2 (05:31→16:18)
[2017-07-23 06:27] LABS: HEMATOCRIT 42.4 % (42.0-52.0); MEAN CELL VOLUME 92.6 fl (80.0-105.0); MEAN CORPUSCULAR HEMOGLOBIN 31.9 pg (25.0-35.0); MEAN CORPUSCULAR HGB CONC 34.4 g/dl (31.0-37.0); MEAN PLATELET VOLUME 10.1 fl (7.0-11.0); RED CELL DISTRIBUTION WIDTH 13.7 % (11.5-14.5); WHITE BLOOD COUNT 5.4 10^3/ul (4.5-11.0)
[2017-07-23 07:08] LABS: TROPONIN I 0.02 ng/mL
[2017-07-23 07:17] LABS: ALB/GLOB RATIO 1.3 (1.1-1.8); ALKALINE PHOSPHATASE 62 U/L (38-126); ALT/SGPT 34 U/L (7-56); AMYLASE 42 U/L (35-125); AST/SGOT 26 U/L (17-59); BILIRUBIN,DIRECT 0.6 mg/dL (0.0-0.4); BILIRUBIN,TOTAL 0.8 mg/dL (0.2-1.3); BLOOD UREA NITROGEN 13 mg/dL (7-21); CALCIUM 8.5 mg/dL (8.4-10.5); CARBON DIOXIDE 26 mmol/L (21-33); CHLORIDE 103 mmol/L (98-107); CHOLESTEROL 212 mg/dL (130-200); GFR AFRICAN-AMERICAN > 60; GLUCOSE,RANDOM 148 mg/dL (70-110); LIPASE 23 U/L (23-300); MAGNESIUM 1.7 mg/dL (1.7-2.2); POTASSIUM 3.8 mmol/L (3.6-5.0); SODIUM 135 mmol/L (132-148); TOTAL PROTEIN 6.9 g/dL (5.8-8.3)
[2017-07-23] MEDS: Budesonide 0.5 mg/2 ml Inhal Susp UD IH SCH ×2 (08:04→19:37)
--- NOTE | 2017-07-23 08:17 | CON ---
DATE: 07/23/2017 PULMONARY CONSULTATION REASON FOR CONSULTATION: Chronic obstructive pulmonary disease. REFERRING PHYSICIAN: Ezekiel Shankar MD HISTORY OF PRESENT ILLNESS: The patient is a 66-year-old male, with past medical history significant for chronic obstructive pulmonary disease, hypertension and coronary artery disease, who presents to [facility] with main complaint of increasing left sided abdominal pain for one day. In addition, the patient also complains of increasing shortness of breath at rest, dyspnea on exertion, cough, and sputum production for the past one week. There is no history of chest pain, coughing up of blood, or chest pain - made worse with deep respirations. There is no history of temperatures, chills or infectious exposure. There is no history of night sweats, weight loss or appetite change prior to the above events. No history of leg or calf pains. No history of syncope or diaphoresis. No history of recent travel or trauma. REVIEW OF SYSTEMS: No history of nausea, vomiting or diarrhea. No acute urinary symptoms. No new neurologic complaints. Rest of the review of systems is negative. ALLERGIES: POSITIVE TO ASPIRIN AND IBUPROFEN. SOCIAL HISTORY: Positive for former tobacco usage and also positive for current alcohol abuse. FAMILY HISTORY: No inheritable diseases. HOME MEDICATIONS: Include Tudorza, prednisone, Norvasc, voriconazole, Toprol, Breo Ellipta, Lipitor, and albuterol. PHYSICAL EXAMINATION: GENERAL: The patient appears comfortable this morning. He is not short of breath at rest. VITAL SIGNS: Temperature is 97.7, pulse is 88, respirations are 17, and blood pressure is 165/91. Oxygen saturation on nasal cannula ranges between 93% to 98%. HEENT: Normocephalic and atraumatic. NECK: No JVD. CARDIOVASCULAR: Positive S1 and S2. No S3 gallop. LUNGS: Decreased breath sounds at the bases. Scattered bilateral rhonchi and wheezing are appreciated. EXTREMITIES: No clubbing, cyanosis or edema. Calves are nontender to palpation. GASTROINTESTINAL: Abdomen is soft, nontender and nondistended. Bowel sounds are positive. SKIN: No acute rash. NEUROLOGIC: Exam is limited at the present time. PERTINENT LABORATORY DATA: CT scan of the chest was done as an angiogram protocol. There is no pulmonary embolism noted. There is a small area of consolidation noted at the medial left lung base. There is no mass noted or nodule noted. There is no lymphadenopathy. The left lower lobe consolidation is most consistent with a pneumonia and/or atelectasis. In the right lung, there are some fibrotic changes noted in the right lower lobe. CBC: White count of 5.4, hemoglobin of 14.6, hematocrit of 42.4, and platelets of 136. Complete metabolic profile: All values within normal limits. IMPRESSION 1. Pneumonia-- left lower lobe. 2. Chronic obstructive pulmonary disease. 3. Acute bronchitis. 4. Hypertension. PLAN: The patient presents to [facility] with main complaint of worsening left sided abdominal pain for one day. In addition to the above, the patient also complains of worsening pulmonary symptoms over the past week. I did review the CT scan of the chest - as above. There is a small consolidation noted at the medial left lung base. This consolidation is most likely secondary to pneumonia and/or atelectasis. Important to note, there is no mass, nodule, or lymphadenopathy noted. Certainly, given the above history, any atelectasis present would certainly be more common secondary to a mucous plug. However, I did advise the patient to have a follow-up CT scan - after the completion of therapy - as an outpatient. He fully agrees. I did have a long talk with the patient in reference to his pulmonary history. The patient is followed closely by a private shop clerk (Dr. Golden Coffman at [facility]). The patient has also had a recent bronchoscopy done at [place]. Apparently, a fungal organism was found and the patient has been on outpatient voriconazole. The patient was highly advised this morning to make sure he follows up with his private shop clerk --after he is done with this admission. He fully agrees. On physical exam, there is [id number] bronchospasm noted. I will continue the current nebulizer treatments and intravenous steroids. I will also add inhaled steroids this morning. The patient is also on antibiotic therapy. Infectious Diseases evaluation has been ordered. The patient does feel much better and is clinically improved this morning. Additional pulmonary intervention will be based on the clinical status of the patient. I will discuss the above with Dr. Shankar this morning. Thank you very much for this pulmonary consultation. Jose De Jesus Montero MD H[facility]
--- NOTE | 2017-07-23 08:30 | HP ---
ADDENDUM The patient's presenting complaint, vital signs, diagnostic data reviewed. The patient examined in room 363, bed 1. The patient's chief complain reviewed. The patient's presenting complaints reviewed. The patient examined. IMPRESSION AND PLAN: 1. Sudden onset of left-sided upper abdominal pain. 2. Severe alcohol dependence. 3. Uncontrolled hypertension. 4. Possible alcohol withdrawal and impending delirium tremens. 5. Tachycardia. 6. History of noncompliance. 7. History of alcohol dependence, history of chronic obstructive pulmonary disease, and history of former nicotine dependence. 8. Elevated D-dimer of 430. 9. Mild lactic acidosis. 10. Left lower lobe consolidation, atelectasis with consolidation, atelectasis of the posteromedial left lower lobe. 11. Possible left lower lobe extrinsic compression versus proximal endobronchial lesion. 12. Questionable aspiration pneumonia.. 13. Splenic granuloma. 14. Left-sided nephrolithiasis with left renal hemorrhagic cyst. 15. Left-sided nephrolithiasis. 16. Questionable left-sided renal colic. 17. Right renal exophytic cyst. 18. Appendectomy. 19. Chronic obstructive pulmonary disease. 20. Asymmetrical focal prominence of the left anterior abdominal wall muscle, worse as atrophia of the contralateral right-sided musculature. 21. Left lower renal pole calculus cluster without hydronephrosis. 22. Left upper renal pole of questionable hemorrhagic cyst. 23. Left lower lobe consolidation. 24. Left lower lobe posteromedial consolidation, atelectasis. 25. Right medial lower lobe fibrotic nodule versus post inflammatory changes. 26. Left posteromedial segmental consolidation, atelectasis and pleural thickening. 27. Cardiomegaly. 28. History of severe noncompliance. 29. History of alcoholism, history of chronic obstructive pulmonary disease, history of hypertension, history of cataract, questionable history of coronary artery disease. 30. History of appendectomy, colonoscopy, history of chronic obstructive pulmonary disease, history of active alcohol dependence. 31. Acute exacerbation of chronic obstructive pulmonary disease with wheezing and rhonchi and left-sided pneumonia. 32. Left upper quadrant abdominal pain, etiology undetermined. 33. Questionable left renal colic. 34. Impending delirium tremens. 35. Uncontrolled hypertension.. PLAN: At this time, the patient has been ordered admission to telemetry. The patient has been ordered BNP, urine drug screen, thyroid panel, lactic acid, PSA, vitamin D 25-hydroxy, repeat CMP, cardiac enzymes, CPK, amylase, lipase, lipid panel, LFTs, magnesium, troponin ordered, influenza A and B, mycoplasma pneumoniae, Legionella titers ordered, repeat CBC ordered, ABG room air stat ordered, blood, sputum, urine cultures ordered. Current consultation Gastroenterology, Infectious Disease, Urology, Psychiatry, Pulmonary ordered. The patient has been ordered procalcitonin level, influenza titer, RPR ordered. The patient is started on Xopenex nebulizer and Mucomyst nebulizer treatment. The patient is started on hydralazine 10 mg IV q. 6 p.r.n. Ativan 0.5 mg IV q. 6 p.r.n., banana bag as been ordered, clonidine 0.1 mg p.o. q. 6 p.r.n., Dilaudid 0.5 mg IV q. 4 p.r.n., doxycycline 100 mg IV q. 12. Folic acid 1 mg daily, Librium tapering protocol and p.r.n. protocol ordered, Lovenox 40 mg subcu daily ordered, Protonix 40 mg twice a day ordered. The patient received 40 mg of Protonix in the Emergency Room. The patient is started on Rocephin 1 g IV daily. The patient received IV fluid bolus. The patient received Solu-Medrol 125 in the Emergency Room. The patient started on Solu-Medrol 40 mg IV q. 8. The patient is ordered Tessalon Perles 200 mg three times a day for coughing. The patient has been ordered Xopenex and Mucomyst nebulizer treatment every 6 hours [id number]. The patient has been ordered Solu-Medrol 40 IV q. 8, Tylenol p.r.n., thiamine 100 mg IV daily three doses, Zofran 4 mg IV q. 4 hours p.r.n., the patient received Zosyn 3.375 g IV. The patient has been ordered chest PT, incentive spirometry, oxygen therapy, repeat EKG ordered. Heart healthy diet ordered. The patient is started on alcohol withdrawal protocol, CIWA protocol, aspiration precautions, Psychiatry, Neurology consultation, Infectious Disease consultation, Gastroenterology consultation, Urology consultation and Pulmonary consultation ordered. The patient has been ordered seizure precaution, neuro checks. The patient has been ordered SCDs, ERICH stockings. Echo with Doppler, renal ultrasound. Repeat EKG, repeat cardiac enzymes ordered. The patient has been counseled about cessation of alcohol, compliance with medication etc., details discussed and explained to the patient at length and the patient was explained about the details of his medical condition, need for hospitalization, need for further diagnostic therapeutic intervention discussed and explained to the patient at length and all questions concerned answered. The patient counseled about cessation of alcohol. Dictated and electronically signed, not read. Signing off, Ezekiel Shankar MD
[2017-07-23] MEDS ORDERED: Magnesium Sulfate 1 gm in D5W 1 GM/100 ML BAG IVPB ONE (08:35)
[2017-07-23] MEDS ORDERED: Potassium Chloride 20 mEq ER Tab PO ONE (08:35)
--- NOTE | 2017-07-23 09:43 | CP.PCM.PN ---
Subjective - Date & Time of Evaluation Date of Evaluation: 07/23/17 Time of Evaluation: 09:39 - Subjective Subjective: Patient seen and examined at bedside. Patient resting comfortably on side of the bed with no new complaints at this time. Patient says he is feeling much better today and is having much less pain in his LUQ than yesterday. However, the pain is still there when he is coughing. Patient says the cough has been nonproductive since the pain started because he cannot cough hard enough to bring anything up. He also admits to some left ankle pain from where he broke his ankle a few weeks ago. Patient says he has not been wearing his boot the past couple of days because it was feeling better. Patient denies fever, chills , chest pain, SOB, N&V, diarrhea, and calf pain. Objective - Vital Signs/Intake and Output Vital Signs (last 24 hours): Temp Pulse Resp BP Pulse Ox 98.1 F 83 17 145/92 H 93 L 07/23/17 07:59 07/23/17 07:59 07/23/17 07:59 07/23/17 07:59 07/23/17 07:59 Intake and Output: 07/23/17 07/23/17 06:59 18:59 Intake Total 2260 Output Total 1400 Balance 860 - Medications Medications: Current Medications Acetaminophen (Tylenol 325mg Tab) 650 mg PO Q6H PRN PRN Reason: Pain, severe (8-10) Acetylcysteine (Acetylcysteine 20%) 4 ml IH Q6 [facility] Last Admin: 07/23/17 08:04 Dose: 4 ml Benzonatate (Tessalon Perles) 200 mg PO TID [facility] Budesonide (Pulmicort Respules) 0.5 mg IH [id number] [facility] Last Admin: 07/23/17 08:04 Dose: 0.5 mg Chlordiazepoxide (Librium) 25 mg PO Q6 [facility] PRN Reason: Taper Stop: 07/26/17 19:59 Last Admin: 07/23/17 05:30 Dose: 25 mg Chlordiazepoxide (Librium) 25 mg PO Q4H PRN PRN Reason: Withdrawl Last Admin: 07/22/17 20:49 Dose: 25 mg Clonidine HCl (Catapres) 0.1 mg PO Q6H PRN PRN Reason: SBP>=170 &/OR DBP>=100MMHG Last Admin: 07/22/17 20:46 Dose: 0.1 mg Enoxaparin Sodium (Lovenox) 40 mg SC DAILY [facility] PRN Reason: Protocol Folic Acid (Folic Acid) 1 mg PO DAILY [facility] Hydralazine HCl (Apresoline) 10 mg IVP Q6 PRN PRN Reason: SBP>=170&/OR DBP>=100MMHG Last Admin: 07/22/17 23:01 Dose: 10 mg Hydromorphone HCl (Dilaudid) 0.5 mg IVP Q4H PRN PRN Reason: Pain, moderate (4-7) Last Admin: 07/23/17 04:27 Dose: 0.5 mg Doxycycline Hyclate 100 mg/ (Sodium Chloride) 100 mls @ 100 mls/hr IVPB Q12 [facility] PRN Reason: Protocol Last Admin: 07/22/17 22:10 Dose: 100 mls/hr Cefepime HCl (Maxipime 2gm) 2 gm in 100 mls @ 100 mls/hr IVPB Q8 [facility] PRN Reason: Protocol Stop: 07/28/17 14:01 Levalbuterol HCl (Xopenex) 0.63 mg IH Q6 [facility] Last Admin: 07/23/17 08:04 Dose: 0.63 mg Lorazepam (Ativan) 0.5 mg IVP Q6 PRN; Protocol PRN Reason: Symptoms of alcohol withdrawl Last Admin: 07/23/17 01:20 Dose: 0.5 mg Methylprednisolone (Solu-Medrol) 40 mg IVP Q8 [facility] Last Admin: 07/23/17 05:31 Dose: 40 mg Ondansetron HCl (Zofran Inj) 4 mg IVP Q4H PRN PRN Reason: Nausea/Vomiting Pantoprazole Sodium (Protonix Ec Tab) 40 mg PO 0600,1600 [facility] Last Admin: 07/23/17 05:31 Dose: 40 mg Polyethylene Glycol (Miralax) 17 gm PO BID [facility] Last Admin: 07/23/17 01:16 Dose: 17 gm Thiamine HCl (Vitamin B1 Inj) 100 mg IV DAILY [facility] Stop: 07/25/17 10:01 Voriconazole (Vfend 200 Mg Tab) 200 mg PO Q12 [facility] PRN Reason: Protocol - Labs Labs: 07/23/17 05:20 07/23/17 05:20 PT 10.7 SECONDS (9.4-12.5) 07/22/17 11:40 INR 0.97 (0.93-1.08) 07/22/17 11:40 APTT 24.0 Seconds (25.1-36.5) L 07/22/17 11:40 - Constitutional Appears: Non-toxic, No Acute Distress - Head Exam Head Exam: NORMAL INSPECTION - Eye Exam Eye Exam: EOMI, Normal appearance - ENT Exam ENT Exam: Mucous Membranes Moist - Respiratory Exam Respiratory Exam: Rales, Rhonchi, NORMAL BREATHING PATTERN. absent: Accessory Muscle Use, Respiratory Distress - Cardiovascular Exam Cardiovascular Exam: RRR, +S1, +S2 - GI/Abdominal Exam GI & Abdominal Exam: Soft, Normal Bowel Sounds Additional comments: 4cm x 2cm hard, tender mass of the abdominal wall below the ribs in the LUQ - Extremities Exam Extremities Exam: Joint Swelling (Left ankle mildly swollen). absent: Calf Tenderness, Pedal Edema - Neurological Exam Neurological Exam: Alert, Awake - Psychiatric Exam Psychiatric exam: Normal Affect, Normal Mood - Skin Skin Exam: Dry, Intact, Normal Color, Warm Assessment and Plan - Assessment and Plan (Free Text) Plan: Cough with respiratory alkylosis 2/2 PNA pleural irritation vs chronic bronchitis - CT chest: * Poss asp pneumotis, splenic granulma, consolidation post left lower lobe with hyperdensisties within it, kidney stone and cyst (consider renal U/S) - urology consulted (Dr. Kellogg) - recs appreciated - PSA: 1.3 - i/o, urine strain - CTA chest: no PE, LLL consolidation, endobronchial occlusion (possibly mucus plug) - septic work up * blood cx. * urine cx. * sputum culture * abg * lactate: 2.7 (07/22), 1.3 (07/23) * proc * cxr * urine ag legionella * mycoplasma - BNP: 145 - ID consulted (Kylee) - recs appreciated - Meds: * mucomyst and xopenex * duonebs [facility] and PRN * Solu medrol 40 * Pulmicort * Tessalon pearles * maxipime, doxy, voriconazole - Flu and Pneumococcal vaccine - Will need to obtain medical records from [place] for cardiac workup LUQ pain likely 2/2 muscular hematoma - CT: asymmetrical focal prominence of the left anterior abdominal wall musculature - GI consulted (Stinson) - recs appreciated - Tylenol PRN pain - Dilaudid PRN - Cold compresses Alcohol dependence - CIWA protocol -banana bag -thaimine x3 doses -folic acid -ativan Q6 prn -librium Q6 and PRN -UDS Elevated d-dimer - U/S doppler LEs bilat HTN 167/100 on admission - poss transient - Clonidine prn - Hydralazine PRN Prophylactic Measures - Lovernox - protonix - zofran - miralax
[2017-07-23] MEDS ORDERED: MethylPREDNISolone 40 mg Vial IVP SCH (10:00)
[2017-07-23] MEDS ORDERED: cefTRIAXone 1 gm 1 GM/100 ML BAG IVPB SCH (10:00)
[2017-07-23] MEDS: Thiamine 100 mg/ml Inj IV SCH (10:08)
[2017-07-23] MEDS: Enoxaparin 40 mg Syringe SC SCH (10:09)
--- NOTE | 2017-07-23 10:43 | CON ---
DATE: 07/23/2017 GASTROENTEROLOGY CONSULTATION REQUESTING PHYSICIAN: Ezekiel Shankar MD REASON FOR CONSULTATION: I have been asked to see this 66-year-old male who comes to the hospital with a one-day history of left upper quadrant abdominal pain which the patient states a sharp and persistent. HISTORY OF PRESENT ILLNESS: The patient states that the pain is exacerbated by taking deep breaths. He also has had a nonproductive cough over the last 2 weeks. Radiographic imaging with chest x-ray and CT scan revealed a left lower lobe infiltrate. The patient also states that he has recently been on an alcohol binge drinking up to a pine of vodka per day as well as several beers. He does have a history of asthma and COPD. PAST MEDICAL HISTORY: Notable for above. Again, he has a history of hypertension, asthma, COPD, and alcoholism. Past surgical history is notable for appendectomy, tonsillectomy and right ear surgery. SOCIAL HISTORY: The patient denies cigarette smoking. He does have a history of alcohol abuse with recent alcohol binge. REVIEW OF SYSTEMS: A 14-point review of systems is notable for left upper quadrant abdominal pain, pleuritic chest pain and cough which is nonproductive. MEDICATIONS AT HOME: Include Tudorza Pressair, albuterol inhaler, atorvastatin, fluticasone/vilanterol inhaler, metoprolol, voriconazole, amlodipine and prednisone. PHYSICAL EXAMINATION: GENERAL: A well-developed male lying in bed, in no acute distress. VITAL SIGNS: Reveal temperature of 98.1, blood pressure of 145/92, and heart rate of 83. HEENT: Reveals sclerae to be white. Conjunctivae are pink. NECK: Supple. CHEST: Reveals coarse rales at the left base. HEART: Exam reveals a regular rate and rhythm. GASTROINTESTINAL: Abdomen is soft. There is mild left upper quadrant tenderness. No rebound or guarding. EXTREMITIES: Show no edema. LABORATORY DATA: Revealed normal CBC. Chemistries revealed blood sugar of 148. AST, ALT and alkaline phosphatase were all normal. Total cholesterol of 212. DIAGNOSTIC DATA: CT scan of the chest reveals a left lower lobe consolidation/atelectasis. The patient also was noted to have calcifications in the left upper renal pole as well as stones in the left lower renal pole collecting system. There is no hydronephrosis. There is a exophytic 3 cm cyst in the right kidney. Bowels appear normal. IMPRESSION: A 66-year-old male comes to the hospital with one-day of left upper quadrant abdominal pain which appears to be pleuritic in nature. He is noted to have a left lower lobe consolidation versus atelectasis on CT scan imaging, I believe his left upper quadrant abdominal pain is referred pain from his pneumonia. RECOMMENDATIONS 1. Continue IV cefepime as per Infectious Diseases. 2. Continue workup of left lower lobe infiltrate as per pulmonary. 3. No other GI workup planned at this time. Mike Stinson MD
--- NOTE | 2017-07-23 10:45 | CARD ---
APPROVED REPORT EKG Measurement Heart [id number] <Conclusion> Normal sinus rhythm Nonspecific T wave abnormality Abnormal ECG
--- NOTE | 2017-07-23 10:54 | US ---
PROCEDURE: Ultrasound of the Kidneys HISTORY: NEPHROLITHIASIS COMPARISON: CT abdomen and pelvis from 07/22/2017. TECHNIQUE: Grayscale imaging was performed. FINDINGS: RIGHT KIDNEY: Measures: 11.0 cm. Normal in size, contour and echogenicity. No stone, solid mass lesion or hydronephrosis visualized. There is a 4.4 x 3.1 x 4.4 cm exophytic simple cyst in the lower pole. LEFT KIDNEY: Measures: 11.3 cm. Normal in size, contour and echogenicity. There is a 7 mm nonobstructing stone in the lower pole. No solid mass lesion or hydronephrosis visualized. OTHER FINDINGS: None. IMPRESSION: 7 mm nonobstructing stone in the lower pole of the left kidney. No hydronephrosis. No right nephrolithiasis.
--- NOTE | 2017-07-23 12:22 | CP.PCM.CON ---
History of Present Illness - History of Present Illness History of Present Illness: 66 year old male with history of alcoholism, HTN, asthma, CAD, cataracts, left ear deafness, S/P appendectomy came in to [facility] complaining of left upper quadrant pain while coughing. He has been on treatment with Voriconazole after he had bronchoscopy months ago which showed fungi. He is now complaining of increased cough and phlegm production for the past week. He has also noticed a mass-like lesion on the left upper quadrant area. He denies fever or chills, no nausea or vomiting, no constipation or diarrhea, no dysuria , no headache or dizziness, no chest pain, no dysphagia. CT scan of the chest as well as abdomen and pelvis is showing left lower lobe infiltrates. Infectious Diseases consult is requested to further evaluate and manage. Review of Systems - Review of Systems All systems: reviewed and no additional remarkable complaints except (as per HPI ) Past Patient History - Infectious Disease Hx of Infectious Diseases: None - Tetanus Immunizations Tetanus Immunization: Unknown - Past Social History Smoking Status: Never Smoked - CARDIAC Hx Cardiac Disorders: Yes Hx Hypertension: Yes - PULMONARY Hx Respiratory Disorders: Yes Hx Asthma: Yes Hx Chronic Obstructive Pulmonary Disease (COPD): Yes - NEUROLOGICAL Hx Neurological Disorder: No - HEENT Hx HEENT Problems: Yes Hx Cataracts: Yes Hx Deafness: Yes (left ear/congenital) - RENAL Hx Chronic Kidney Disease: No - ENDOCRINE/METABOLIC Hx Endocrine Disorders: No - HEMATOLOGICAL/ONCOLOGICAL Hx Blood Disorders: No - INTEGUMENTARY Hx Dermatological Problems: No - MUSCULOSKELETAL/RHEUMATOLOGICAL Hx Musculoskeletal Disorders: No - GASTROINTESTINAL Hx Gastrointestinal Disorders: No - GENITOURINARY/GYNECOLOGICAL Hx Genitourinary Disorders: No - PSYCHIATRIC Hx Psychophysiologic Disorder: No Hx Substance Use: No - SURGICAL HISTORY Hx Appendectomy: Yes Hx Tonsillectomy: Yes Other/Comment: polyps removed from right ear - ANESTHESIA Hx Anesthesia: Yes Hx Anesthesia Reactions: No Hx Malignant Hyperthermia: No Meds Allergies/Adverse Reactions: Allergies Allergy/AdvReac Type Severity Reaction Status Date / Time aspirin AdvReac COUGH Verified 07/22/17 15:14 ibuprofen [From Motrin] AdvReac COUGH Verified 07/22/17 15:14 - Medications Medications: Current Medications Acetaminophen (Tylenol 325mg Tab) 650 mg PO Q6H PRN PRN Reason: Pain, severe (8-10) Acetylcysteine (Acetylcysteine 20%) 4 ml IH Q6 [facility] Last Admin: 07/23/17 01:02 Dose: 4 ml Benzonatate (Tessalon Perles) 200 mg PO TID [facility] Budesonide (Pulmicort Respules) 0.5 mg IH [id number] [facility] Chlordiazepoxide (Librium) 25 mg PO Q6 [facility] PRN Reason: Taper Stop: 07/26/17 19:59 Last Admin: 07/23/17 05:30 Dose: 25 mg Chlordiazepoxide (Librium) 25 mg PO Q4H PRN PRN Reason: Withdrawl Last Admin: 07/22/17 20:49 Dose: 25 mg Clonidine HCl (Catapres) 0.1 mg PO Q6H PRN PRN Reason: SBP>=170 &/OR DBP>=100MMHG Last Admin: 07/22/17 20:46 Dose: 0.1 mg Enoxaparin Sodium (Lovenox) 40 mg SC DAILY [facility] PRN Reason: Protocol Folic Acid (Folic Acid) 1 mg PO DAILY [facility] Hydralazine HCl (Apresoline) 10 mg IVP Q6 PRN PRN Reason: SBP>=170&/OR DBP>=100MMHG Last Admin: 07/22/17 23:01 Dose: 10 mg Hydromorphone HCl (Dilaudid) 0.5 mg IVP Q4H PRN PRN Reason: Pain, moderate (4-7) Last Admin: 07/23/17 04:27 Dose: 0.5 mg Doxycycline Hyclate 100 mg/ (Sodium Chloride) 100 mls @ 100 mls/hr IVPB Q12 [facility] PRN Reason: Protocol Last Admin: 07/22/17 22:10 Dose: 100 mls/hr Ceftriaxone Sodium (Rocephin 1 Gram Ivpb (D5w)) 1 gm in 100 mls @ 100 mls/hr IVPB DAILY [facility] PRN Reason: Protocol Levalbuterol HCl (Xopenex) 0.63 mg IH Q6 [facility] Last Admin: 07/23/17 01:02 Dose: 0.63 mg Lorazepam (Ativan) 0.5 mg IVP Q6 PRN; Protocol PRN Reason: Symptoms of alcohol withdrawl Last Admin: 07/23/17 01:20 Dose: 0.5 mg Methylprednisolone (Solu-Medrol) 40 mg IVP Q8 [facility] Last Admin: 07/23/17 05:31 Dose: 40 mg Ondansetron HCl (Zofran Inj) 4 mg IVP Q4H PRN PRN Reason: Nausea/Vomiting Pantoprazole Sodium (Protonix Ec Tab) 40 mg PO 0600,1600 [facility] Last Admin: 07/23/17 05:31 Dose: 40 mg Polyethylene Glycol (Miralax) 17 gm PO BID [facility] Last Admin: 07/23/17 01:16 Dose: 17 gm Thiamine HCl (Vitamin B1 Inj) 100 mg IV DAILY [facility] Stop: 07/25/17 10:01 Physical Exam - Constitutional Appears: Non-toxic, No Acute Distress - Head Exam Head Exam: NORMAL INSPECTION - ENT Exam ENT Exam: Mucous Membranes Moist - Neck Exam Neck exam: Negative for: Lymphadenopathy, Meningismus - Respiratory Exam Respiratory Exam: Decreased Breath Sounds - Cardiovascular Exam Cardiovascular Exam: +S1, +S2 - GI/Abdominal Exam GI & Abdominal Exam: Soft. absent: Tenderness Results - Vital Signs Recent Vital Signs: Last Vital Signs Temp 97.7 F 07/23/17 00:30 Pulse 88 07/23/17 04:44 Resp 17 07/23/17 00:30 BP 165/91 H 07/23/17 00:30 Pulse Ox 93 L 07/23/17 00:30 - Labs Result Diagrams: 07/23/17 05:20 07/23/17 05:20 Labs: Laboratory Results - last 24 hr 07/22/17 07/22/17 07/22/17 15:20 17:10 20:12 WBC RBC Hgb Hct MCV MCH MCHC RDW Plt Count MPV pO2 47 VBG pH 7.34 VBG pCO2 44.0 VBG HCO3 23.7 VBG Total CO2 25.1 VBG O2 Sat (Calc) 86.1 H VBG Base Excess -2.2 L VBG Potassium 3.2 L Sodium 132.0 Chloride 97.0 L Glucose 106 Lactate 1.6 FiO2 21.0 Lactic Acid Ammonia < 8.7 L Troponin I NT-Pro-B Natriuret Pep Prostate Specific Ag Free T4 Thyroxine (T4) TSH 3rd Generation Venous Blood Potassium 3.2 L Urine Color Yellow Urine Appearance Clear Urine pH 6.5 Ur Specific [place] 1.020 Urine Protein Negative Urine Glucose (UA) Negative Urine Ketones Negative Urine Blood Negative Urine Nitrate Negative Urine Bilirubin Negative Urine Urobilinogen 0.2 Ur Leukocyte Esterase Negative Urine Opiates Screen Urine Methadone Screen Ur Barbiturates Screen Ur Phencyclidine Scrn Ur Amphetamines Screen U Benzodiazepines Scrn U Oth Cocaine Metabols U Cannabinoids Screen Influenza Typ A,B (EIA) 07/22/17 07/22/17 07/22/17 20:12 23:45 23:45 WBC RBC Hgb Hct MCV MCH MCHC RDW Plt Count MPV pO2 VBG pH VBG pCO2 VBG HCO3 VBG Total CO2 VBG O2 Sat (Calc) VBG Base Excess VBG Potassium Sodium Chloride Glucose Lactate FiO2 Lactic Acid 2.7 H Ammonia Troponin I NT-Pro-B Natriuret Pep Prostate Specific Ag 1.3 Free T4 1.62 1.34 Thyroxine (T4) 9.1 TSH 3rd Generation 0.52 Venous Blood Potassium Urine Color Urine Appearance Urine pH Ur Specific [place] Urine Protein Urine Glucose (UA) Urine Ketones Urine Blood Urine Nitrate Urine Bilirubin Urine Urobilinogen Ur Leukocyte Esterase Urine Opiates Screen Urine Methadone Screen Ur Barbiturates Screen Ur Phencyclidine Scrn Ur Amphetamines Screen U Benzodiazepines Scrn U Oth Cocaine Metabols U Cannabinoids Screen Influenza Typ A,B (EIA) 07/22/17 07/23/17 07/23/17 23:45 00:00 00:30 WBC RBC Hgb Hct MCV MCH MCHC RDW Plt Count MPV pO2 VBG pH VBG pCO2 VBG HCO3 VBG Total CO2 VBG O2 Sat (Calc) VBG Base Excess VBG Potassium Sodium Chloride Glucose Lactate FiO2 Lactic Acid Ammonia Troponin I NT-Pro-B Natriuret Pep 145 Prostate Specific Ag Free T4 Thyroxine (T4) TSH 3rd Generation Venous Blood Potassium Urine Color Urine Appearance Urine pH Ur Specific [place] Urine Protein Urine Glucose (UA) Urine Ketones Urine Blood Urine Nitrate Urine Bilirubin Urine Urobilinogen Ur Leukocyte Esterase Urine Opiates Screen Positive H Urine Methadone Screen Negative Ur Barbiturates Screen Negative Ur Phencyclidine Scrn Negative Ur Amphetamines Screen Negative U Benzodiazepines Scrn Negative U Oth Cocaine Metabols Negative U Cannabinoids Screen Negative Influenza Typ A,B (EIA) Negative for flu a/b 07/23/17 07/23/17 05:20 05:20 WBC 5.4 D RBC 4.58 Hgb 14.6 Hct 42.4 MCV 92.6 MCH 31.9 MCHC 34.4 RDW 13.7 Plt Count 136 MPV 10.1 pO2 VBG pH VBG pCO2 VBG HCO3 VBG Total CO2 VBG O2 Sat (Calc) VBG Base Excess VBG Potassium Sodium Chloride Glucose Lactate FiO2 Lactic Acid Ammonia Troponin I 0.02 D NT-Pro-B Natriuret Pep Prostate Specific Ag Free T4 Thyroxine (T4) TSH 3rd Generation Venous Blood Potassium Urine Color Urine Appearance Urine pH Ur Specific [place] Urine Protein Urine Glucose (UA) Urine Ketones Urine Blood Urine Nitrate Urine Bilirubin Urine Urobilinogen Ur Leukocyte Esterase Urine Opiates Screen Urine Methadone Screen Ur Barbiturates Screen Ur Phencyclidine Scrn Ur Amphetamines Screen U Benzodiazepines Scrn U Oth Cocaine Metabols U Cannabinoids Screen Influenza Typ A,B (EIA) Assessment & Plan - Assessment and Plan (Free Text) Plan: Assessment Probable left lower lobe healthcare-associated pneumonia on top of fungal pneumonitis (being treated for months now) history of alcoholism HTN asthma CAD cataracts left ear deafness S/P appendectomy Plan Started the patient on Cefepime and Doxycycline and continue Voriconazole pending blood, sputum cx, PCT, urine Legionella Ag; reviewed CT C/A/P reviewed Dr. Montero's consultation will monitor clinically
--- NOTE | 2017-07-23 13:53 | CP.PCM.CON ---
Past Patient History - Infectious Disease Hx of Infectious Diseases: None - Tetanus Immunizations Tetanus Immunization: Unknown - Past Social History Smoking Status: Never Smoked - CARDIAC Hx Cardiac Disorders: Yes Hx Hypertension: Yes - PULMONARY Hx Respiratory Disorders: Yes Hx Asthma: Yes Hx Chronic Obstructive Pulmonary Disease (COPD): Yes - NEUROLOGICAL Hx Neurological Disorder: No - HEENT Hx HEENT Problems: Yes Hx Cataracts: Yes Hx Deafness: Yes (left ear/congenital) - RENAL Hx Chronic Kidney Disease: No - ENDOCRINE/METABOLIC Hx Endocrine Disorders: No - HEMATOLOGICAL/ONCOLOGICAL Hx Blood Disorders: No - INTEGUMENTARY Hx Dermatological Problems: No - MUSCULOSKELETAL/RHEUMATOLOGICAL Hx Musculoskeletal Disorders: No - GASTROINTESTINAL Hx Gastrointestinal Disorders: No - GENITOURINARY/GYNECOLOGICAL Hx Genitourinary Disorders: No - PSYCHIATRIC Hx Psychophysiologic Disorder: No Hx Substance Use: No - SURGICAL HISTORY Hx Appendectomy: Yes Hx Tonsillectomy: Yes Other/Comment: polyps removed from right ear - ANESTHESIA Hx Anesthesia: Yes Hx Anesthesia Reactions: No Hx Malignant Hyperthermia: No Meds Allergies/Adverse Reactions: Allergies Allergy/AdvReac Type Severity Reaction Status Date / Time aspirin AdvReac COUGH Verified 07/22/17 15:14 ibuprofen [From Motrin] AdvReac COUGH Verified 07/22/17 15:14 - Medications Medications: Current Medications Acetaminophen (Tylenol 325mg Tab) 650 mg PO Q6H PRN PRN Reason: Pain, severe (8-10) Acetylcysteine (Acetylcysteine 20%) 4 ml IH Q6 [facility] Last Admin: 07/23/17 13:20 Dose: 4 ml Benzonatate (Tessalon Perles) 200 mg PO TID [facility] Last Admin: 07/23/17 10:08 Dose: 200 mg Budesonide (Pulmicort Respules) 0.5 mg IH [id number] [facility] Last Admin: 07/23/17 08:04 Dose: 0.5 mg Chlordiazepoxide (Librium) 25 mg PO Q6 [facility] PRN Reason: Taper Stop: 07/26/17 19:59 Last Admin: 07/23/17 12:24 Dose: Not Given Chlordiazepoxide (Librium) 25 mg PO Q4H PRN PRN Reason: Withdrawl Last Admin: 07/23/17 10:27 Dose: 25 mg Clonidine HCl (Catapres) 0.1 mg PO Q6H PRN PRN Reason: SBP>=170 &/OR DBP>=100MMHG Last Admin: 07/22/17 20:46 Dose: 0.1 mg Enoxaparin Sodium (Lovenox) 40 mg SC DAILY [facility] PRN Reason: Protocol Last Admin: 07/23/17 10:09 Dose: 40 mg Folic Acid (Folic Acid) 1 mg PO DAILY [facility] Last Admin: 07/23/17 10:08 Dose: 1 mg Hydralazine HCl (Apresoline) 10 mg IVP Q6 PRN PRN Reason: SBP>=170&/OR DBP>=100MMHG Last Admin: 07/22/17 23:01 Dose: 10 mg Hydromorphone HCl (Dilaudid) 0.5 mg IVP Q4H PRN PRN Reason: Pain, moderate (4-7) Last Admin: 07/23/17 04:27 Dose: 0.5 mg Doxycycline Hyclate 100 mg/ (Sodium Chloride) 100 mls @ 100 mls/hr IVPB Q12 [facility] PRN Reason: Protocol Last Admin: 07/23/17 10:11 Dose: 100 mls/hr Cefepime HCl (Maxipime 2gm) 2 gm in 100 mls @ 100 mls/hr IVPB Q8 [facility] PRN Reason: Protocol Stop: 07/28/17 14:01 Levalbuterol HCl (Xopenex) 0.63 mg IH Q6 [facility] Last Admin: 07/23/17 13:20 Dose: 0.63 mg Lorazepam (Ativan) 0.5 mg IVP Q6 PRN; Protocol PRN Reason: Symptoms of alcohol withdrawl Last Admin: 07/23/17 01:20 Dose: 0.5 mg Methylprednisolone (Solu-Medrol) 40 mg IVP Q8 [facility] Last Admin: 07/23/17 05:31 Dose: 40 mg Multivitamins (Thera Tab) 1 tab PO 0800 [facility] Ondansetron HCl (Zofran Inj) 4 mg IVP Q4H PRN PRN Reason: Nausea/Vomiting Pantoprazole Sodium (Protonix Ec Tab) 40 mg PO 0600,1600 [facility] Last Admin: 07/23/17 05:31 Dose: 40 mg Polyethylene Glycol (Miralax) 17 gm PO BID [facility] Last Admin: 07/23/17 10:09 Dose: 17 gm Thiamine HCl (Vitamin B1 Inj) 100 mg IV DAILY [facility] Stop: 07/25/17 10:01 Last Admin: 07/23/17 10:08 Dose: 100 mg Thiamine HCl (Vitamin B1 Tab) 100 mg PO DAILY [facility] Last Admin: 07/23/17 12:23 Dose: 100 mg Voriconazole (Vfend 200 Mg Tab) 200 mg PO Q12 [facility] PRN Reason: Protocol Last Admin: 07/23/17 10:15 Dose: 200 mg Results - Vital Signs Recent Vital Signs: Last Vital Signs Temp 98.1 F 07/23/17 07:59 Pulse 83 07/23/17 07:59 Resp 17 07/23/17 07:59 BP 145/92 H 07/23/17 07:59 Pulse Ox 93 L 07/23/17 07:59 - Labs Result Diagrams: 07/23/17 05:20 07/23/17 05:20 Labs: Laboratory Results - last 24 hr 07/22/17 07/22/17 07/22/17 15:20 17:10 20:12 WBC RBC Hgb Hct MCV MCH MCHC RDW Plt Count MPV pO2 47 VBG pH 7.34 VBG pCO2 44.0 VBG HCO3 23.7 VBG Total CO2 25.1 VBG O2 Sat (Calc) 86.1 H VBG Base Excess -2.2 L VBG Potassium 3.2 L Sodium 132.0 Chloride 97.0 L Glucose 106 Lactate 1.6 FiO2 21.0 Potassium Carbon Dioxide Anion Gap BUN Creatinine Est GFR ( Amer) Est GFR (Non-Af Amer) Random Glucose Lactic Acid Calcium Magnesium Total Bilirubin Direct Bilirubin AST ALT Alkaline Phosphatase Ammonia < 8.7 L Total Creatine Kinase Troponin I NT-Pro-B Natriuret Pep Total Protein Albumin Globulin Albumin/Globulin Ratio Triglycerides Cholesterol LDL Cholesterol Direct HDL Cholesterol Amylase Lipase Prostate Specific Ag 25-OH Vitamin D Total Procalcitonin Free T4 Thyroxine (T4) TSH 3rd Generation Venous Blood Potassium 3.2 L Urine Color Yellow Urine Appearance Clear Urine pH 6.5 Ur Specific [place] 1.020 Urine Protein Negative Urine Glucose (UA) Negative Urine Ketones Negative Urine Blood Negative Urine Nitrate Negative Urine Bilirubin Negative Urine Urobilinogen 0.2 Ur Leukocyte Esterase Negative Urine Opiates Screen Urine Methadone Screen Ur Barbiturates Screen Ur Phencyclidine Scrn Ur Amphetamines Screen U Benzodiazepines Scrn U Oth Cocaine Metabols U Cannabinoids Screen Influenza Typ A,B (EIA) 07/22/17 07/22/17 07/22/17 20:12 23:45 23:45 WBC RBC Hgb Hct MCV MCH MCHC RDW Plt Count MPV pO2 VBG pH VBG pCO2 VBG HCO3 VBG Total CO2 VBG O2 Sat (Calc) VBG Base Excess VBG Potassium Sodium Chloride Glucose Lactate FiO2 Potassium Carbon Dioxide Anion Gap BUN Creatinine Est GFR ( Amer) Est GFR (Non-Af Amer) Random Glucose Lactic Acid 2.7 H Calcium Magnesium Total Bilirubin Direct Bilirubin AST ALT Alkaline Phosphatase Ammonia Total Creatine Kinase Troponin I NT-Pro-B Natriuret Pep Total Protein Albumin Globulin Albumin/Globulin Ratio Triglycerides Cholesterol LDL Cholesterol Direct HDL Cholesterol Amylase Lipase Prostate Specific Ag 1.3 25-OH Vitamin D Total Procalcitonin Free T4 1.62 1.34 Thyroxine (T4) 9.1 TSH 3rd Generation 0.52 Venous Blood Potassium Urine Color Urine Appearance Urine pH Ur Specific [place] Urine Protein Urine Glucose (UA) Urine Ketones Urine Blood Urine Nitrate Urine Bilirubin Urine Urobilinogen Ur Leukocyte Esterase Urine Opiates Screen Urine Methadone Screen Ur Barbiturates Screen Ur Phencyclidine Scrn Ur Amphetamines Screen U Benzodiazepines Scrn U Oth Cocaine Metabols U Cannabinoids Screen Influenza Typ A,B (EIA) 07/22/17 07/22/17 07/23/17 23:45 23:45 00:00 WBC RBC Hgb Hct MCV MCH MCHC RDW Plt Count MPV pO2 VBG pH VBG pCO2 VBG HCO3 VBG Total CO2 VBG O2 Sat (Calc) VBG Base Excess VBG Potassium Sodium Chloride Glucose Lactate FiO2 Potassium Carbon Dioxide Anion Gap BUN Creatinine Est GFR ( Amer) Est GFR (Non-Af Amer) Random Glucose Lactic Acid Calcium Magnesium Total Bilirubin Direct Bilirubin AST ALT Alkaline Phosphatase Ammonia Total Creatine Kinase Troponin I NT-Pro-B Natriuret Pep 145 Total Protein Albumin Globulin Albumin/Globulin Ratio Triglycerides Cholesterol LDL Cholesterol Direct HDL Cholesterol Amylase Lipase Prostate Specific Ag 25-OH Vitamin D Total 37.3 Procalcitonin Free T4 Thyroxine (T4) TSH 3rd Generation Venous Blood Potassium Urine Color Urine Appearance Urine pH Ur Specific [place] Urine Protein Urine Glucose (UA) Urine Ketones Urine Blood Urine Nitrate Urine Bilirubin Urine Urobilinogen Ur Leukocyte Esterase Urine Opiates Screen Urine Methadone Screen Ur Barbiturates Screen Ur Phencyclidine Scrn Ur Amphetamines Screen U Benzodiazepines Scrn U Oth Cocaine Metabols U Cannabinoids Screen Influenza Typ A,B (EIA) Negative for flu a/b 07/23/17 07/23/17 07/23/17 00:30 05:20 05:20 WBC 5.4 D RBC 4.58 Hgb 14.6 Hct 42.4 MCV 92.6 MCH 31.9 MCHC 34.4 RDW 13.7 Plt Count 136 MPV 10.1 pO2 VBG pH VBG pCO2 VBG HCO3 VBG Total CO2 VBG O2 Sat (Calc) VBG Base Excess VBG Potassium Sodium Chloride Glucose Lactate FiO2 Potassium Carbon Dioxide Anion Gap BUN Creatinine Est GFR ( Amer) Est GFR (Non-Af Amer) Random Glucose Lactic Acid Calcium Magnesium Total Bilirubin Direct Bilirubin AST ALT Alkaline Phosphatase Ammonia Total Creatine Kinase Troponin I NT-Pro-B Natriuret Pep Total Protein Albumin Globulin Albumin/Globulin Ratio Triglycerides Cholesterol LDL Cholesterol Direct HDL Cholesterol Amylase Lipase Prostate Specific Ag 25-OH Vitamin D Total Procalcitonin < 0.05 L Free T4 Thyroxine (T4) TSH 3rd Generation Venous Blood Potassium Urine Color Urine Appearance Urine pH Ur Specific [place] Urine Protein Urine Glucose (UA) Urine Ketones Urine Blood Urine Nitrate Urine Bilirubin Urine Urobilinogen Ur Leukocyte Esterase Urine Opiates Screen Positive H Urine Methadone Screen Negative Ur Barbiturates Screen Negative Ur Phencyclidine Scrn Negative Ur Amphetamines Screen Negative U Benzodiazepines Scrn Negative U Oth Cocaine Metabols Negative U Cannabinoids Screen Negative Influenza Typ A,B (EIA) 07/23/17 07/23/17 05:20 09:15 WBC RBC Hgb Hct MCV MCH MCHC RDW Plt Count MPV pO2 VBG pH VBG pCO2 VBG HCO3 VBG Total CO2 VBG O2 Sat (Calc) VBG Base Excess VBG Potassium Sodium 135 Chloride 103 Glucose Lactate FiO2 Potassium 3.8 Carbon Dioxide 26 Anion Gap 11 BUN 13 Creatinine 0.7 L Est GFR ( Amer) > 60 Est GFR (Non-Af Amer) > 60 Random Glucose 148 H Lactic Acid 1.3 Calcium 8.5 Magnesium 1.7 Total Bilirubin 0.8 Direct Bilirubin 0.6 H AST 26 ALT 34 Alkaline Phosphatase 62 Ammonia Total Creatine Kinase 182 Troponin I 0.02 D NT-Pro-B Natriuret Pep Total Protein 6.9 Albumin 3.9 Globulin 3.0 Albumin/Globulin Ratio 1.3 Triglycerides 39 Cholesterol 212 H LDL Cholesterol Direct 98 HDL Cholesterol 107 H Amylase 42 Lipase 23 Prostate Specific Ag 25-OH Vitamin D Total Procalcitonin Free T4 Thyroxine (T4) TSH 3rd Generation Venous Blood Potassium Urine Color Urine Appearance Urine pH Ur Specific [place] Urine Protein Urine Glucose (UA) Urine Ketones Urine Blood Urine Nitrate Urine Bilirubin Urine Urobilinogen Ur Leukocyte Esterase Urine Opiates Screen Urine Methadone Screen Ur Barbiturates Screen Ur Phencyclidine Scrn Ur Amphetamines Screen U Benzodiazepines Scrn U Oth Cocaine Metabols U Cannabinoids Screen Influenza Typ A,B (EIA)
--- NOTE | 2017-07-23 14:02 | CP.PCM.CON ---
<Harmony Talavera - Last Filed: 07/23/17 13:53> History of Present Illness - History of Present Illness History of Present Illness: This is a 66 year old male seen at bedside referred to be seen for alcoholism. Labs were reviewed, nursing staff was consulted. 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 He indicates he plans to "get kerr to " because the program has been most helpful for him. He declines inpatient admission or any other treatment referrals. He has a stable marriage and a 16 year old son who is autistic that necessitates client spending a lot of time on his needs. He denies any current psychiatric symptoms and indicates he is physically comfortable on the detox protocol. Will sign off on this patient please call back if there are any further needs. Past Patient History - Infectious Disease Hx of Infectious Diseases: None - Tetanus Immunizations Tetanus Immunization: Unknown - Past Social History Smoking Status: Never Smoked - CARDIAC Hx Cardiac Disorders: Yes Hx Hypertension: Yes - PULMONARY Hx Respiratory Disorders: Yes Hx Asthma: Yes Hx Chronic Obstructive Pulmonary Disease (COPD): Yes - NEUROLOGICAL Hx Neurological Disorder: No - HEENT Hx HEENT Problems: Yes Hx Cataracts: Yes Hx Deafness: Yes (left ear/congenital) - RENAL Hx Chronic Kidney Disease: No - ENDOCRINE/METABOLIC Hx Endocrine Disorders: No - HEMATOLOGICAL/ONCOLOGICAL Hx Blood Disorders: No - INTEGUMENTARY Hx Dermatological Problems: No - MUSCULOSKELETAL/RHEUMATOLOGICAL Hx Musculoskeletal Disorders: No - GASTROINTESTINAL Hx Gastrointestinal Disorders: No - GENITOURINARY/GYNECOLOGICAL Hx Genitourinary Disorders: No - PSYCHIATRIC Hx Psychophysiologic Disorder: No Hx Substance Use: No - SURGICAL HISTORY Hx Appendectomy: Yes Hx Tonsillectomy: Yes Other/Comment: polyps removed from right ear - ANESTHESIA Hx Anesthesia: Yes Hx Anesthesia Reactions: No Hx Malignant Hyperthermia: No Meds Allergies/Adverse Reactions: Allergies Allergy/AdvReac Type Severity Reaction Status Date / Time aspirin AdvReac COUGH Verified 07/22/17 15:14 ibuprofen [From Motrin] AdvReac COUGH Verified 07/22/17 15:14 - Medications Medications: Current Medications Acetaminophen (Tylenol 325mg Tab) 650 mg PO Q6H PRN PRN Reason: Pain, severe (8-10) Acetylcysteine (Acetylcysteine 20%) 4 ml IH Q6 [facility] Last Admin: 07/23/17 13:20 Dose: 4 ml Benzonatate (Tessalon Perles) 200 mg PO TID [facility] Last Admin: 07/23/17 10:08 Dose: 200 mg Budesonide (Pulmicort Respules) 0.5 mg IH [id number] [facility] Last Admin: 07/23/17 08:04 Dose: 0.5 mg Chlordiazepoxide (Librium) 25 mg PO Q6 [facility] PRN Reason: Taper Stop: 07/26/17 19:59 Last Admin: 07/23/17 12:24 Dose: Not Given Chlordiazepoxide (Librium) 25 mg PO Q4H PRN PRN Reason: Withdrawl Last Admin: 07/23/17 10:27 Dose: 25 mg Clonidine HCl (Catapres) 0.1 mg PO Q6H PRN PRN Reason: SBP>=170 &/OR DBP>=100MMHG Last Admin: 07/22/17 20:46 Dose: 0.1 mg Enoxaparin Sodium (Lovenox) 40 mg SC DAILY [facility] PRN Reason: Protocol Last Admin: 07/23/17 10:09 Dose: 40 mg Folic Acid (Folic Acid) 1 mg PO DAILY [facility] Last Admin: 07/23/17 10:08 Dose: 1 mg Hydralazine HCl (Apresoline) 10 mg IVP Q6 PRN PRN Reason: SBP>=170&/OR DBP>=100MMHG Last Admin: 07/22/17 23:01 Dose: 10 mg Hydromorphone HCl (Dilaudid) 0.5 mg IVP Q4H PRN PRN Reason: Pain, moderate (4-7) Last Admin: 07/23/17 04:27 Dose: 0.5 mg Doxycycline Hyclate 100 mg/ (Sodium Chloride) 100 mls @ 100 mls/hr IVPB Q12 [facility] PRN Reason: Protocol Last Admin: 07/23/17 10:11 Dose: 100 mls/hr Cefepime HCl (Maxipime 2gm) 2 gm in 100 mls @ 100 mls/hr IVPB Q8 [facility] PRN Reason: Protocol Stop: 07/28/17 14:01 Levalbuterol HCl (Xopenex) 0.63 mg IH Q6 [facility] Last Admin: 07/23/17 13:20 Dose: 0.63 mg Lorazepam (Ativan) 0.5 mg IVP Q6 PRN; Protocol PRN Reason: Symptoms of alcohol withdrawl Last Admin: 07/23/17 01:20 Dose: 0.5 mg Methylprednisolone (Solu-Medrol) 40 mg IVP Q8 [facility] Last Admin: 07/23/17 05:31 Dose: 40 mg Multivitamins (Thera Tab) 1 tab PO 0800 [facility] Ondansetron HCl (Zofran Inj) 4 mg IVP Q4H PRN PRN Reason: Nausea/Vomiting Pantoprazole Sodium (Protonix Ec Tab) 40 mg PO 0600,1600 [facility] Last Admin: 07/23/17 05:31 Dose: 40 mg Polyethylene Glycol (Miralax) 17 gm PO BID [facility] Last Admin: 07/23/17 10:09 Dose: 17 gm Thiamine HCl (Vitamin B1 Inj) 100 mg IV DAILY [facility] Stop: 07/25/17 10:01 Last Admin: 07/23/17 10:08 Dose: 100 mg Thiamine HCl (Vitamin B1 Tab) 100 mg PO DAILY [facility] Last Admin: 07/23/17 12:23 Dose: 100 mg Voriconazole (Vfend 200 Mg Tab) 200 mg PO Q12 [facility] PRN Reason: Protocol Last Admin: 07/23/17 10:15 Dose: 200 mg Results - Vital Signs Recent Vital Signs: Last Vital Signs Temp 98.1 F 07/23/17 07:59 Pulse 83 07/23/17 07:59 Resp 17 07/23/17 07:59 BP 145/92 H 07/23/17 07:59 Pulse Ox 93 L 07/23/17 07:59 - Labs Result Diagrams: 07/23/17 05:20 07/23/17 05:20 Labs: Laboratory Results - last 24 hr 07/22/17 07/22/17 07/22/17 15:20 17:10 20:12 WBC RBC Hgb Hct MCV MCH MCHC RDW Plt Count MPV pO2 47 VBG pH 7.34 VBG pCO2 44.0 VBG HCO3 23.7 VBG Total CO2 25.1 VBG O2 Sat (Calc) 86.1 H VBG Base Excess -2.2 L VBG Potassium 3.2 L Sodium 132.0 Chloride 97.0 L Glucose 106 Lactate 1.6 FiO2 21.0 Potassium Carbon Dioxide Anion Gap BUN Creatinine Est GFR ( Amer) Est GFR (Non-Af Amer) Random Glucose Lactic Acid Calcium Magnesium Total Bilirubin Direct Bilirubin AST ALT Alkaline Phosphatase Ammonia < 8.7 L Total Creatine Kinase Troponin I NT-Pro-B Natriuret Pep Total Protein Albumin Globulin Albumin/Globulin Ratio Triglycerides Cholesterol LDL Cholesterol Direct HDL Cholesterol Amylase Lipase Prostate Specific Ag 25-OH Vitamin D Total Procalcitonin Free T4 Thyroxine (T4) TSH 3rd Generation Venous Blood Potassium 3.2 L Urine Color Yellow Urine Appearance Clear Urine pH 6.5 Ur Specific [place] 1.020 Urine Protein Negative Urine Glucose (UA) Negative Urine Ketones Negative Urine Blood Negative Urine Nitrate Negative Urine Bilirubin Negative Urine Urobilinogen 0.2 Ur Leukocyte Esterase Negative Urine Opiates Screen Urine Methadone Screen Ur Barbiturates Screen Ur Phencyclidine Scrn Ur Amphetamines Screen U Benzodiazepines Scrn U Oth Cocaine Metabols U Cannabinoids Screen Influenza Typ A,B (EIA) 07/22/17 07/22/17 07/22/17 20:12 23:45 23:45 WBC RBC Hgb Hct MCV MCH MCHC RDW Plt Count MPV pO2 VBG pH VBG pCO2 VBG HCO3 VBG Total CO2 VBG O2 Sat (Calc) VBG Base Excess VBG Potassium Sodium Chloride Glucose Lactate FiO2 Potassium Carbon Dioxide Anion Gap BUN Creatinine Est GFR ( Amer) Est GFR (Non-Af Amer) Random Glucose Lactic Acid 2.7 H Calcium Magnesium Total Bilirubin Direct Bilirubin AST ALT Alkaline Phosphatase Ammonia Total Creatine Kinase Troponin I NT-Pro-B Natriuret Pep Total Protein Albumin Globulin Albumin/Globulin Ratio Triglycerides Cholesterol LDL Cholesterol Direct HDL Cholesterol Amylase Lipase Prostate Specific Ag 1.3 25-OH Vitamin D Total Procalcitonin Free T4 1.62 1.34 Thyroxine (T4) 9.1 TSH 3rd Generation 0.52 Venous Blood Potassium Urine Color Urine Appearance Urine pH Ur Specific [place] Urine Protein Urine Glucose (UA) Urine Ketones Urine Blood Urine Nitrate Urine Bilirubin Urine Urobilinogen Ur Leukocyte Esterase Urine Opiates Screen Urine Methadone Screen Ur Barbiturates Screen Ur Phencyclidine Scrn Ur Amphetamines Screen U Benzodiazepines Scrn U Oth Cocaine Metabols U Cannabinoids Screen Influenza Typ A,B (EIA) 07/22/17 07/22/17 07/23/17 23:45 23:45 00:00 WBC RBC Hgb Hct MCV MCH MCHC RDW Plt Count MPV pO2 VBG pH VBG pCO2 VBG HCO3 VBG Total CO2 VBG O2 Sat (Calc) VBG Base Excess VBG Potassium Sodium Chloride Glucose Lactate FiO2 Potassium Carbon Dioxide Anion Gap BUN Creatinine Est GFR ( Amer) Est GFR (Non-Af Amer) Random Glucose Lactic Acid Calcium Magnesium Total Bilirubin Direct Bilirubin AST ALT Alkaline Phosphatase Ammonia Total Creatine Kinase Troponin I NT-Pro-B Natriuret Pep 145 Total Protein Albumin Globulin Albumin/Globulin Ratio Triglycerides Cholesterol LDL Cholesterol Direct HDL Cholesterol Amylase Lipase Prostate Specific Ag 25-OH Vitamin D Total 37.3 Procalcitonin Free T4 Thyroxine (T4) TSH 3rd Generation Venous Blood Potassium Urine Color Urine Appearance Urine pH Ur Specific [place] Urine Protein Urine Glucose (UA) Urine Ketones Urine Blood Urine Nitrate Urine Bilirubin Urine Urobilinogen Ur Leukocyte Esterase Urine Opiates Screen Urine Methadone Screen Ur Barbiturates Screen Ur Phencyclidine Scrn Ur Amphetamines Screen U Benzodiazepines Scrn U Oth Cocaine Metabols U Cannabinoids Screen Influenza Typ A,B (EIA) Negative for flu a/b 07/23/17 07/23/17 07/23/17 00:30 05:20 05:20 WBC 5.4 D RBC 4.58 Hgb 14.6 Hct 42.4 MCV 92.6 MCH 31.9 MCHC 34.4 RDW 13.7 Plt Count 136 MPV 10.1 pO2 VBG pH VBG pCO2 VBG HCO3 VBG Total CO2 VBG O2 Sat (Calc) VBG Base Excess VBG Potassium Sodium Chloride Glucose Lactate FiO2 Potassium Carbon Dioxide Anion Gap BUN Creatinine Est GFR ( Amer) Est GFR (Non-Af Amer) Random Glucose Lactic Acid Calcium Magnesium Total Bilirubin Direct Bilirubin AST ALT Alkaline Phosphatase Ammonia Total Creatine Kinase Troponin I NT-Pro-B Natriuret Pep Total Protein Albumin Globulin Albumin/Globulin Ratio Triglycerides Cholesterol LDL Cholesterol Direct HDL Cholesterol Amylase Lipase Prostate Specific Ag 25-OH Vitamin D Total Procalcitonin < 0.05 L Free T4 Thyroxine (T4) TSH 3rd Generation Venous Blood Potassium Urine Color Urine Appearance Urine pH Ur Specific [place] Urine Protein Urine Glucose (UA) Urine Ketones Urine Blood Urine Nitrate Urine Bilirubin Urine Urobilinogen Ur Leukocyte Esterase Urine Opiates Screen Positive H Urine Methadone Screen Negative Ur Barbiturates Screen Negative Ur Phencyclidine Scrn Negative Ur Amphetamines Screen Negative U Benzodiazepines Scrn Negative U Oth Cocaine Metabols Negative U Cannabinoids Screen Negative Influenza Typ A,B (EIA) 07/23/17 07/23/17 05:20 09:15 WBC RBC Hgb Hct MCV MCH MCHC RDW Plt Count MPV pO2 VBG pH VBG pCO2 VBG HCO3 VBG Total CO2 VBG O2 Sat (Calc) VBG Base Excess VBG Potassium Sodium 135 Chloride 103 Glucose Lactate FiO2 Potassium 3.8 Carbon Dioxide 26 Anion Gap 11 BUN 13 Creatinine 0.7 L Est GFR ( Amer) > 60 Est GFR (Non-Af Amer) > 60 Random Glucose 148 H Lactic Acid 1.3 Calcium 8.5 Magnesium 1.7 Total Bilirubin 0.8 Direct Bilirubin 0.6 H AST 26 ALT 34 Alkaline Phosphatase 62 Ammonia Total Creatine Kinase 182 Troponin I 0.02 D NT-Pro-B Natriuret Pep Total Protein 6.9 Albumin 3.9 Globulin 3.0 Albumin/Globulin Ratio 1.3 Triglycerides 39 Cholesterol 212 H LDL Cholesterol Direct 98 HDL Cholesterol 107 H Amylase 42 Lipase 23 Prostate Specific Ag 25-OH Vitamin D Total Procalcitonin Free T4 Thyroxine (T4) TSH 3rd Generation Venous Blood Potassium Urine Color Urine Appearance Urine pH Ur Specific [place] Urine Protein Urine Glucose (UA) Urine Ketones Urine Blood Urine Nitrate Urine Bilirubin Urine Urobilinogen Ur Leukocyte Esterase Urine Opiates Screen Urine Methadone Screen Ur Barbiturates Screen Ur Phencyclidine Scrn Ur Amphetamines Screen U Benzodiazepines Scrn U Oth Cocaine Metabols U Cannabinoids Screen Influenza Typ A,B (EIA) <Guerline Powell A - Last Filed: 07/23/17 16:59> History of Present Illness - History of Present Illness History of Present Illness: Pt was seen together with nurse practitioner, medications reviewed, labs reviewed, discussed with the nursing staff. Patient reported that at present moment he feels comfortable, patient is aware of the circumstances of his admission to the medical side, patient reports that his abdominal pain is much better. Patient said that he has difficulty to fall asleep and stay asleep, this physician underwriter offered patient Sonata at the nighttime patient is willing to try that medication, this physician underwriter educated patient about risk, benefits, and alternatives. Patient has long history of alcohol use disorder, 3 rehabs in the past, most recent was 2 years ago and patient stayed sober for past 2 years, relapsed in December, at present moment patient is drinking on daily basis but he is willing to quit, patient is willing to be followed up with AA meetings, patient was educated about naltrexone and ReVia, patient reported that he did try this medication but he did not like how those medication make him feel, patient is on multivitamins, thiamine, folic acid, Librium as well as. 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 Mental status examination: Patient presented to be alert, oriented, pleasant, corporative. Mood described "I feel alright", affect was reactive, mood congruent. Auto process was coherent and goal directed. Thought content patient denied visual, auditory, tactile hallucinations, patient does not appear to be psychotic or paranoid. Insight and judgment are improving, impulses are well controlled. Patient adamantly denied thoughts of harming himself or others, denied intent or plan. Impression: Alcohol use disorder Alcohol withdrawal symptoms which are improving Rule out substance-induced mood disorder Plan: Continue current medications Continue multivitamins, folic acid, thiamine patient is on Librium, advised to continue as it is right now, try to taper down Librium dose by 25% daily Monitor vital signs Sonata was started at the nighttime for insomnia He shouldn't does not want to take naltrexone or ReVia Social work evaluation Patient is willing to follow up with AA meetings This physician underwriter will sign off a A Meds - Medications Medications: Current Medications Acetaminophen (Tylenol 325mg Tab) 650 mg PO Q6H PRN PRN Reason: Pain, severe (8-10) Acetylcysteine (Acetylcysteine 20%) 4 ml IH Q6 [facility] Last Admin: 07/23/17 13:20 Dose: 4 ml Atorvastatin Calcium (Lipitor) 40 mg PO DIN [facility] Benzonatate (Tessalon Perles) 200 mg PO TID [facility] Last Admin: 07/23/17 14:19 Dose: 200 mg Budesonide (Pulmicort Respules) 0.5 mg IH [id number] [facility] Last Admin: 07/23/17 08:04 Dose: 0.5 mg Chlordiazepoxide (Librium) 25 mg PO Q6 [facility] PRN Reason: Taper Stop: 07/26/17 19:59 Last Admin: 07/23/17 12:24 Dose: Not Given Chlordiazepoxide (Librium) 25 mg PO Q4H PRN PRN Reason: Withdrawl Last Admin: 11/30/17 10:27 Dose: 25 mg Clonidine HCl (Catapres) 0.1 mg PO Q6H PRN PRN Reason: SBP>=170 &/OR DBP>=100MMHG Last Admin: 07/22/17 20:46 Dose: 0.1 mg Enoxaparin Sodium (Lovenox) 40 mg SC DAILY [facility] PRN Reason: Protocol Last Admin: 07/23/17 10:09 Dose: 40 mg Folic Acid (Folic Acid) 1 mg PO DAILY [facility] Last Admin: 07/23/17 10:08 Dose: 1 mg Hydralazine HCl (Apresoline) 10 mg IVP Q6 PRN PRN Reason: SBP>=170&/OR DBP>=100MMHG Last Admin: 07/23/17 16:18 Dose: 10 mg Hydromorphone HCl (Dilaudid) 0.5 mg IVP Q4H PRN PRN Reason: Pain, moderate (4-7) Last Admin: 07/23/17 04:27 Dose: 0.5 mg Doxycycline Hyclate 100 mg/ (Sodium Chloride) 100 mls @ 100 mls/hr IVPB Q12 [facility] PRN Reason: Protocol Last Admin: 07/23/17 10:11 Dose: 100 mls/hr Cefepime HCl (Maxipime 2gm) 2 gm in 100 mls @ 100 mls/hr IVPB Q8 [facility] PRN Reason: Protocol Stop: 07/28/17 14:01 Last Admin: 07/23/17 14:52 Dose: 100 mls/hr Levalbuterol HCl (Xopenex) 0.63 mg IH Q6 [facility] Last Admin: 07/23/17 13:20 Dose: 0.63 mg Lorazepam (Ativan) 0.5 mg IVP Q6 PRN; Protocol PRN Reason: Symptoms of alcohol withdrawl Last Admin: 07/23/17 01:20 Dose: 0.5 mg Methylprednisolone (Solu-Medrol) 40 mg IVP Q8 [facility] Last Admin: 07/23/17 14:20 Dose: 40 mg Multivitamins (Thera Tab) 1 tab PO 0800 [facility] Ondansetron HCl (Zofran Inj) 4 mg IVP Q4H PRN PRN Reason: Nausea/Vomiting Pantoprazole Sodium (Protonix Ec Tab) 40 mg PO 0600,1600 [facility] Last Admin: 07/23/17 16:18 Dose: 40 mg Polyethylene Glycol (Miralax) 17 gm PO BID [facility] Last Admin: 07/23/17 10:09 Dose: 17 gm Thiamine HCl (Vitamin B1 Inj) 100 mg IV DAILY [facility] Stop: 07/25/17 10:01 Last Admin: 07/23/17 10:08 Dose: 100 mg Thiamine HCl (Vitamin B1 Tab) 100 mg PO DAILY [facility] Last Admin: 07/23/17 12:23 Dose: 100 mg Voriconazole (Vfend 200 Mg Tab) 200 mg PO Q12 [facility] PRN Reason: Protocol Last Admin: 07/23/17 10:15 Dose: 200 mg Zaleplon (Sonata) 5 mg PO HS PRN PRN Reason: Insomnia Results - Vital Signs Recent Vital Signs: Last Vital Signs Temp 98.3 F 07/23/17 16:00 Pulse 106 H 07/23/17 16:00 Resp 20 07/23/17 16:00 BP 175/116 H 07/23/17 16:18 Pulse Ox 93 L 07/23/17 16:14 - Labs Result Diagrams: 07/23/17 05:20 07/23/17 05:20 Labs: Laboratory Results - last 24 hr 07/22/17 07/22/17 07/22/17 17:10 20:12 20:12 WBC RBC Hgb Hct MCV MCH MCHC RDW Plt Count MPV pO2 47 VBG pH 7.34 VBG pCO2 44.0 VBG HCO3 23.7 VBG Total CO2 25.1 VBG O2 Sat (Calc) 86.1 H VBG Base Excess -2.2 L VBG Potassium 3.2 L Sodium 132.0 Chloride 97.0 L Glucose 106 Lactate 1.6 FiO2 21.0 Potassium Carbon Dioxide Anion Gap BUN Creatinine Est GFR ( Amer) Est GFR (Non-Af Amer) Random Glucose Lactic Acid Calcium Magnesium Total Bilirubin Direct Bilirubin AST ALT Alkaline Phosphatase Ammonia < 8.7 L Total Creatine Kinase Troponin I NT-Pro-B Natriuret Pep Total Protein Albumin Globulin Albumin/Globulin Ratio Triglycerides Cholesterol LDL Cholesterol Direct HDL Cholesterol Amylase Lipase Prostate Specific Ag 25-OH Vitamin D Total Procalcitonin Free T4 1.62 Thyroxine (T4) TSH 3rd Generation 0.52 Venous Blood Potassium 3.2 L Urine Opiates Screen Urine Methadone Screen Ur Barbiturates Screen Ur Phencyclidine Scrn Ur Amphetamines Screen U Benzodiazepines Scrn U Oth Cocaine Metabols U Cannabinoids Screen Influenza Typ A,B (EIA) 07/22/17 07/22/17 07/22/17 23:45 23:45 23:45 WBC RBC Hgb Hct MCV MCH MCHC RDW Plt Count MPV pO2 VBG pH VBG pCO2 VBG HCO3 VBG Total CO2 VBG O2 Sat (Calc) VBG Base Excess VBG Potassium Sodium Chloride Glucose Lactate FiO2 Potassium Carbon Dioxide Anion Gap BUN Creatinine Est GFR ( Amer) Est GFR (Non-Af Amer) Random Glucose Lactic Acid 2.7 H Calcium Magnesium Total Bilirubin Direct Bilirubin AST ALT Alkaline Phosphatase Ammonia Total Creatine Kinase Troponin I NT-Pro-B Natriuret Pep Total Protein Albumin Globulin Albumin/Globulin Ratio Triglycerides Cholesterol LDL Cholesterol Direct HDL Cholesterol Amylase Lipase Prostate Specific Ag 1.3 25-OH Vitamin D Total 37.3 Procalcitonin Free T4 1.34 Thyroxine (T4) 9.1 TSH 3rd Generation Venous Blood Potassium Urine Opiates Screen Urine Methadone Screen Ur Barbiturates Screen Ur Phencyclidine Scrn Ur Amphetamines Screen U Benzodiazepines Scrn U Oth Cocaine Metabols U Cannabinoids Screen Influenza Typ A,B (EIA) 07/22/17 07/23/17 07/23/17 23:45 00:00 00:30 WBC RBC Hgb Hct MCV MCH MCHC RDW Plt Count MPV pO2 VBG pH VBG pCO2 VBG HCO3 VBG Total CO2 VBG O2 Sat (Calc) VBG Base Excess VBG Potassium Sodium Chloride Glucose Lactate FiO2 Potassium Carbon Dioxide Anion Gap BUN Creatinine Est GFR ( Amer) Est GFR (Non-Af Amer) Random Glucose Lactic Acid Calcium Magnesium Total Bilirubin Direct Bilirubin AST ALT Alkaline Phosphatase Ammonia Total Creatine Kinase Troponin I NT-Pro-B Natriuret Pep 145 Total Protein Albumin Globulin Albumin/Globulin Ratio Triglycerides Cholesterol LDL Cholesterol Direct HDL Cholesterol Amylase Lipase Prostate Specific Ag 25-OH Vitamin D Total Procalcitonin Free T4 Thyroxine (T4) TSH 3rd Generation Venous Blood Potassium Urine Opiates Screen Positive H Urine Methadone Screen Negative Ur Barbiturates Screen Negative Ur Phencyclidine Scrn Negative Ur Amphetamines Screen Negative U Benzodiazepines Scrn Negative U Oth Cocaine Metabols Negative U Cannabinoids Screen Negative Influenza Typ A,B (EIA) Negative for flu a/b 07/23/17 07/23/17 07/23/17 05:20 05:20 05:20 WBC 5.4 D RBC 4.58 Hgb 14.6 Hct 42.4 MCV 92.6 MCH 31.9 MCHC 34.4 RDW 13.7 Plt Count 136 MPV 10.1 pO2 VBG pH VBG pCO2 VBG HCO3 VBG Total CO2 VBG O2 Sat (Calc) VBG Base Excess VBG Potassium Sodium 135 Chloride 103 Glucose Lactate FiO2 Potassium 3.8 Carbon Dioxide 26 Anion Gap 11 BUN 13 Creatinine 0.7 L Est GFR ( Amer) > 60 Est GFR (Non-Af Amer) > 60 Random Glucose 148 H Lactic Acid Calcium 8.5 Magnesium 1.7 Total Bilirubin 0.8 Direct Bilirubin 0.6 H AST 26 ALT 34 Alkaline Phosphatase 62 Ammonia Total Creatine Kinase 182 Troponin I 0.02 D NT-Pro-B Natriuret Pep Total Protein 6.9 Albumin 3.9 Globulin 3.0 Albumin/Globulin Ratio 1.3 Triglycerides 39 Cholesterol 212 H LDL Cholesterol Direct 98 HDL Cholesterol 107 H Amylase 42 Lipase 23 Prostate Specific Ag 25-OH Vitamin D Total Procalcitonin < 0.05 L Free T4 Thyroxine (T4) TSH 3rd Generation Venous Blood Potassium Urine Opiates Screen Urine Methadone Screen Ur Barbiturates Screen Ur Phencyclidine Scrn Ur Amphetamines Screen U Benzodiazepines Scrn U Oth Cocaine Metabols U Cannabinoids Screen Influenza Typ A,B (EIA) 07/23/17 09:15 WBC RBC Hgb Hct MCV MCH MCHC RDW Plt Count MPV pO2 VBG pH VBG pCO2 VBG HCO3 VBG Total CO2 VBG O2 Sat (Calc) VBG Base Excess VBG Potassium Sodium Chloride Glucose Lactate FiO2 Potassium Carbon Dioxide Anion Gap BUN Creatinine Est GFR ( Amer) Est GFR (Non-Af Amer) Random Glucose Lactic Acid 1.3 Calcium Magnesium Total Bilirubin Direct Bilirubin AST ALT Alkaline Phosphatase Ammonia Total Creatine Kinase Troponin I NT-Pro-B Natriuret Pep Total Protein Albumin Globulin Albumin/Globulin Ratio Triglycerides Cholesterol LDL Cholesterol Direct HDL Cholesterol Amylase Lipase Prostate Specific Ag 25-OH Vitamin D Total Procalcitonin Free T4 Thyroxine (T4) TSH 3rd Generation Venous Blood Potassium Urine Opiates Screen Urine Methadone Screen Ur Barbiturates Screen Ur Phencyclidine Scrn Ur Amphetamines Screen U Benzodiazepines Scrn U Oth Cocaine Metabols U Cannabinoids Screen Influenza Typ A,B (EIA)
[2017-07-23] MEDS: Cefepime IV 2 gm in NS 2 GM/100 ML BAG IVPB SCH ×2 (14:52→23:14)
--- NOTE | 2017-07-23 16:14 | IP.NPCORE ---
Pneumonia Progress Notes - Oxygenation Assessment (REQUIRED) O2 Saturation: 93 Oxygen Delivery Method: Nasal Cannula Date: 07/23/17 - Blood Cultures (REQUIRED) Culture drawn: Yes Date:: 07/22/17 Time:: 11:40 - Initial Antibiotic Initial Antibiotic given within Four Hours:: Yes - Appropriate Antibiotic Appropriate Antibiotic within 24 hours of Admission:: Yes - Pneumonia Vaccine Pneumonia Vaccine: No (to be given prior to dc) - Smoking Cessation Smoking Cessation counseling provided:: No Ex-Smoker (has not smoked in the last 12 months): No
--- NOTE | 2017-07-24 00:55 | CON ---
GENITOURINARY CONSULTATION DATE: 07/23/2017 CHIEF COMPLAINT: Abdominal pain. HISTORY OF PRESENT ILLNESS: This is a 66-year-old male who presented complaining of hard coughing and then developed left-sided abdominal pain. The pain became severe and he presented to the emergency room. He was having some productive sputum and a cough for about 2 weeks prior to this episode. The patient was admitted and he is being treated for pneumonia. During his evaluation, he was found to have kidney stones and a urology consultation was requested. The patient denies any dysuria, urinary frequency, urgency, or gross hematuria. He reports no prior stone episodes. PAST MEDICAL HISTORY: Significant for COPD, pneumonia, hypertension, asthma, alcoholism, cataracts, and coronary artery disease. PAST SURGICAL HISTORY: Appendectomy and colonoscopy. MEDICATIONS AT HOME: Include atorvastatin, Norvasc, metoprolol, prednisone, voriconazole, and Brilinta. ALLERGIES: ALLERGIC TO ASPIRIN AND IBUPROFEN. FAMILY HISTORY: Noncontributory for this problem. SOCIAL HISTORY: Quit smoking years ago. Positive for EtOH use. REVIEW OF SYSTEMS: Positive for left flank pain, although this has improved. Positive for cough. Positive for shortness of breath. Denies chest pain or palpitations. Other systems are negative. PHYSICAL EXAMINATION: GENERAL: The patient is awake, alert, answering questions. VITAL SIGNS: He is afebrile. Temperature of 98.1, pulse 83, BP 145/92, respirations 17. NECK: Supple with no adenopathy. CHEST: Slightly increased inspiratory effort. CARDIAC: Positive S1 and S2. There is no peripheral edema. ABDOMEN: Soft, nontender, nondistended. There is no hepatosplenomegaly. There is no costovertebral angle tenderness. The patient points to the left upper quadrant as the area where pain was located. No current bulging noted. : Phallus is normal. Scrotum is normal. Testes bilaterally descended, nontender, no masses. Epididymides are normal. LABORATORY DATA: WBC count normal at 5.4, BUN 13, creatinine 0.7 with a GFR greater than 60. Urinalysis negative for nitrites, negative for blood, negative for leukocytes. On radiologic exam, the patient had a CT scan of the abdomen and pelvis done yesterday which showed there are probable calcifications in the left upper renal pole cortex versus a tiny 2 mm hemorrhagic cyst or rather a hemorrhagic lesion, lesion is too small to accurately characterize. There is a cluster of calcifications in the anterior left lower pole collecting system is suggested, approximately 6 cm, it may represent a single calculus or multiple calculi which are contiguous. There was no hydronephrosis. There was no solid mass. There was an exophytic 3 cm cystic-appearing mass suggested of the lower pole of the right kidney. No ureteral calculi were noted. Bladder was unremarkable. There is left lower lobe lung consolidation, and a CT of the chest was recommended. Microbiology; blood cultures, no growth after 24 hours. IMPRESSION AND PLAN: This is a 66-year-old male with apparent left lower lobe pneumonia. As for the patient's pain, this does not appear to be renal or colic. Pain is likely pleuritic pain from his left lower lobe pneumonia. The pain was worsened with coughing and improved with shallow breathing. As for the CT findings of stones, there appeared to be parenchymal calcifications, possibly a cluster of stones in the left kidney. There is no hydronephrosis or ureteral calculus noted, no acute urologic intervention is necessary at this time. I discussed with the patient that he does appear to have kidney stones and plan would be to obtain a kidney, ureter, and bladder and if the stones are visible, we can consider an outpatient extracorporeal shockwave lithotripsy when he is medically improved. As for the right exophytic renal lesion, an ultrasound was recommended, preferable would be a repeat CT scan without and with intravenous contrast; however, I would wait till his acute episode of pneumonia has improved, and the patient is currently undergoing cardiology testing for heart disease. Thank you for allowing me to participate in the care of this patient. We will continue to follow him with you. Misbah Rodas MD
[2017-07-24] MEDS: Acetylcysteine 20% Inhal Soln (4ml) IH SCH (01:34)
[2017-07-24] MEDS: Levalbuterol 0.63 MG/3 ML Inhal Soln UD IH SCH ×2 (01:34→08:22)
[2017-07-24] MEDS ORDERED: Acetylcysteine 20% Inhal Soln (4ml) IH SCH (01:35)
[2017-07-24] MEDS: Cefepime IV 2 gm in NS 2 GM/100 ML BAG IVPB SCH (05:57)
[2017-07-24] MEDS: Pantoprazole 40 mg EC Tab PO SCH (05:58)
[2017-07-24] MEDS: MethylPREDNISolone 40 mg Vial IVP SCH (06:00)
[2017-07-24 06:25] LABS: HEMATOCRIT 41.3 % (42.0-52.0); MEAN CELL VOLUME 93.9 fl (80.0-105.0); MEAN CORPUSCULAR HEMOGLOBIN 32.3 pg (25.0-35.0); MEAN CORPUSCULAR HGB CONC 34.4 g/dl (31.0-37.0); MEAN PLATELET VOLUME 10.2 fl (7.0-11.0); RED CELL DISTRIBUTION WIDTH 14.2 % (11.5-14.5)
--- NOTE | 2017-07-24 07:51 | PN ---
DATE: 07/24/2017 PULMONARY NOTE SUBJECTIVE: The patient appears very comfortable this morning. He is not short of breath at rest. PHYSICAL EXAMINATION: VITAL SIGNS: Temperature is 97.8, pulse 87, respirations 17, blood pressure 148/91. Oxygen saturation on room air is 94-95%. HEENT: Normocephalic, atraumatic. NECK: No JVD. CARDIOVASCULAR: Positive S1, S2. No S3 gallop. LUNGS: Improved breath sounds at the bases. There is a significant decrease in the rhonchi and wheezing appreciated. EXTREMITIES: No clubbing, cyanosis or edema. Calves are nontender to palpation. GI: Abdomen is soft, nontender and nondistended. Bowel sounds are positive. SKIN: No acute rash. NEUROLOGIC: Exam limited at the present time. IMPRESSION: 1. Pneumonia - left lower lobe. 2. Chronic obstructive pulmonary disease. 3. Acute bronchitis. 4. Hypertension. PLAN: The patient appears very comfortable this morning. He is not short of breath at rest. His cough is significantly less. His abdominal pain is also significantly less. He does state to feeling much better overall. On physical exam, his bronchospasm appears to be resolving. In addition, the alveolar arterial gradient also appears to be resolving. I will continue the current nebulizer treatments and decrease the intravenous steroids this morning. I would also continue with the antibiotics--as per infectious disease. As noted yesterday, the patient is followed closely by Dr. Golden Coffman (at [facility]). I did advise the patient again to follow up closely with Dr. Coffman after his discharge. I have also advised the patient again to follow up with a repeat CT scan - for comparison - in the near future. He fully agrees with the plan. Clinical status of the patient is significantly improved - compared to the initial presentation. The patient is advised to be out of bed as much as possible. I will discuss the above with Dr. Shankar. Jose De Jesus Montero MD HORT[facility]
[2017-07-24] MEDS ORDERED: Multivitamin Therapeutic Tab PO SCH (08:00)
[2017-07-24] MEDS: Budesonide 0.5 mg/2 ml Inhal Susp UD IH SCH (08:21)
[2017-07-24 08:26] LABS: ALB/GLOB RATIO 1.3 (1.1-1.8); ALKALINE PHOSPHATASE 52 U/L (38-126); ALT/SGPT 19 U/L (7-56); AST/SGOT 28 U/L (17-59); BILIRUBIN,DIRECT 0.5 mg/dL (0.0-0.4); BILIRUBIN,TOTAL 0.6 mg/dL (0.2-1.3); BLOOD UREA NITROGEN 20 mg/dL (7-21); CALCIUM 9.1 mg/dL (8.4-10.5); CARBON DIOXIDE 23 mmol/L (21-33); CHLORIDE 105 mmol/L (98-107); GFR AFRICAN-AMERICAN > 60; GLUCOSE,RANDOM 156 mg/dL (70-110); MAGNESIUM 2.3 mg/dL (1.7-2.2); POTASSIUM 4.2 mmol/L (3.6-5.0); SODIUM 139 mmol/L (132-148); TOTAL PROTEIN 6.8 g/dL (5.8-8.3)
[2017-07-24 09:41] VITALS: BP 139/98; RESP 20; TEMP 98.1; O2SAT 97
[2017-07-24] MEDS: Thiamine 100 mg/ml Inj IV SCH (09:47)
[2017-07-24] MEDS: POLYETHYLENE GLYCOL 3350 17 GM/Dose PACKET PO SCH (09:47)
[2017-07-24] MEDS: Enoxaparin 40 mg Syringe SC SCH (09:47)
[2017-07-24] MEDS ORDERED: MethylPREDNISolone 40 mg Vial IVP SCH (10:00)
[2017-07-24] MEDS ORDERED: Metoprolol Succinate 25 mg XL Tab PO SCH (10:00)
[2017-07-24 12:55] VITALS: PULSE 102
--- NOTE | 2017-07-24 13:23 | PN ---
DATE: 07/24/2017 SUBJECTIVE: The patient is lying in bed. He states that he feels better. His left upper quadrant abdominal pain is less. He still has some pleuritic chest pain. MEDICATIONS: Include N-acetylcysteine, hydralazine, lorazepam, clonidine, Dilaudid, doxycycline 100 mg IV q.12 hours, folic acid, Librium 25 mg every 4 hours as needed, atorvastatin, Lovenox 40 mg subcu daily, Maxipime 2 g IV q.8 hours, polyethylene glycol, Norvasc, pantoprazole, budesonide, Solu-Medrol, Sonata, Tessalon Perles, multivitamin, metoprolol, Tylenol q.6 hours p.r.n., voriconazole, thiamine, hydrochloride, levalbuterol, and Zofran. OBJECTIVE: VITAL SIGNS: Reveal temperature of 98.1, blood pressure of 139/98, and heart rate of 90. HEENT: Reveal sclerae to be white. Conjunctivae pink. NECK: Supple. CHEST: Reveal scattered rales at the left base with decreased breath sounds. HEART: Reveals regular rate and rhythm. ABDOMEN: Soft and nontender. No mass. EXTREMITIES: Show no edema. LABORATORY DATA: Reveal white blood cell count of 12 and hemoglobin of 14.2. Chemistries reveal blood sugar of 156. AST, ALT, and alk phos were all normal. IMPRESSION: 1. Left lower lobe pneumonia causing left upper quadrant abdominal pain as well as pleuritic chest pain. 2. Recent alcohol binge. 3. Hypertension. 4. Asthmatic bronchitis and chronic obstructive pulmonary disease. RECOMMENDATIONS: Continue IV antibiotics. Mike Stinson MD
--- NOTE | 2017-07-24 14:45 | CP.PCM.DIS ---
Provider - Provider Date of Admission: 07/22/17 14:30 Attending physician: Ezekiel Shankar MD Primary care physician: Camilla Otero MD Consults: Dr. Milad Montero Time Spent in preparation of Discharge (in minutes): 35 Diagnosis - Discharge Diagnosis (1) Alcohol intoxication Status: Acute (2) Asthma Status: Acute (3) Bronchitis Status: Acute (4) Pneumonia Status: Acute Hospital Course - Lab Results Lab Results: Micro Results 07/23/17 00:30 Urine,Clean Catch Urine Culture - Final No Growth (<1,000 CFU/ML) Most Recent Lab Values WBC 12.0 10^3/ul (4.5-11.0) H D 07/24/17 05:20 RBC 4.40 10^6/uL (3.5-6.1) 07/24/17 05:20 Hgb 14.2 g/dL (14.0-18.0) 07/24/17 05:20 Hct 41.3 % (42.0-52.0) L 07/24/17 05:20 MCV 93.9 fl (80.0-105.0) 07/24/17 05:20 MCH 32.3 pg (25.0-35.0) 07/24/17 05:20 MCHC 34.4 g/dl (31.0-37.0) 07/24/17 05:20 RDW 14.2 % (11.5-14.5) 07/24/17 05:20 Plt Count 115 10^3/uL (120.0-450.0) L 07/24/17 05:20 MPV 10.2 fl (7.0-11.0) 07/24/17 05:20 Gran % 64.9 % (50.0-68.0) 07/22/17 11:40 Lymph % (Auto) 23.6 % (22.0-35.0) 07/22/17 11:40 [place] % (Auto) 6.6 % (1.0-6.0) H 07/22/17 11:40 Eos % (Auto) 4.5 % (1.5-5.0) 07/22/17 11:40 Baso % (Auto) 0.4 % (0.0-3.0) 07/22/17 11:40 Gran # 6.15 (1.4-6.5) 07/22/17 11:40 Lymph # 2.2 (1.2-3.4) 07/22/17 11:40 [place] # 0.6 (0.1-0.6) 07/22/17 11:40 Eos # 0.4 (0.0-0.7) 07/22/17 11:40 Baso # 0.04 K/mm3 (0.0-2.0) 07/22/17 11:40 PT 10.7 SECONDS (9.4-12.5) 07/22/17 11:40 INR 0.97 (0.93-1.08) 07/22/17 11:40 APTT 24.0 Seconds (25.1-36.5) L 07/22/17 11:40 D-Dimer, Quantitative 435 ng/mL (0-243) H 07/22/17 13:45 pO2 47 mm/Hg (30-55) 07/22/17 17:10 VBG pH 7.34 (7.32-7.43) 07/22/17 17:10 VBG pCO2 44.0 (40-60) 07/22/17 17:10 VBG HCO3 23.7 mmol/l (21-28) 07/22/17 17:10 VBG Total CO2 25.1 mmol.L (22-28) 07/22/17 17:10 VBG O2 Sat (Calc) 86.1 % (40-65) H 07/22/17 17:10 VBG Base Excess -2.2 mmol/L (0.0-2.0) L 07/22/17 17:10 VBG Potassium 3.2 mmol/L (3.6-5.2) L 07/22/17 17:10 Sodium 132.0 mmol/L (132-148) 07/22/17 17:10 Chloride 97.0 mmol/L (98-107) L 07/22/17 17:10 Glucose 106 mg/dl (75-110) 07/22/17 17:10 Lactate 1.6 mmol/L (0.7-2.1) 07/22/17 17:10 FiO2 21.0 % 07/22/17 17:10 Sodium 139 mmol/L (132-148) 07/24/17 05:20 Potassium 4.2 mmol/L (3.6-5.0) 07/24/17 05:20 Chloride 105 mmol/L (98-107) 07/24/17 05:20 Carbon Dioxide 23 mmol/L (21-33) 07/24/17 05:20 Anion Gap 15 (10-20) 07/24/17 05:20 BUN 20 mg/dL (7-21) 07/24/17 05:20 Creatinine 0.8 mg/dl (0.8-1.5) 07/24/17 05:20 Est GFR ( Amer) > 60 07/24/17 05:20 Est GFR (Non-Af Amer) > 60 07/24/17 05:20 Random Glucose 156 mg/dL (70-110) H 07/24/17 05:20 Lactic Acid 1.3 mmol/L (0.7-2.1) 07/23/17 09:15 Calcium 9.1 mg/dL (8.4-10.5) 07/24/17 05:20 Magnesium 2.3 mg/dL (1.7-2.2) H 07/24/17 05:20 Total Bilirubin 0.6 mg/dL (0.2-1.3) 07/24/17 05:20 Direct Bilirubin 0.5 mg/dL (0.0-0.4) H 07/24/17 05:20 AST 28 U/L (17-59) 07/24/17 05:20 ALT 19 U/L (7-56) 07/24/17 05:20 Alkaline Phosphatase 52 U/L (38-126) 07/24/17 05:20 Ammonia < 8.7 umol/L (9-33) L 07/22/17 20:12 Lactate Dehydrogenase 484 U/L (333-699) 07/22/17 11:40 Total Creatine Kinase 182 U/L (35-230) 07/23/17 05:20 Troponin I 0.02 ng/mL D 07/23/17 05:20 NT-Pro-B Natriuret Pep 360 pg/mL (0-450) 07/24/17 05:20 Total Protein 6.8 g/dL (5.8-8.3) 07/24/17 05:20 Albumin 3.9 g/dL (3.0-4.8) 07/24/17 05:20 Globulin 2.9 gm/dL 07/24/17 05:20 Albumin/Globulin Ratio 1.3 (1.1-1.8) 07/24/17 05:20 Triglycerides 39 mg/dL (35-160) 07/23/17 05:20 Cholesterol 212 mg/dL (130-200) H 07/23/17 05:20 LDL Cholesterol Direct 98 mg/dL (0-129) 07/23/17 05:20 HDL Cholesterol 107 mg/dL (29-60) H 07/23/17 05:20 Amylase 42 U/L (35-125) 07/23/17 05:20 Lipase 23 U/L (23-300) 07/23/17 05:20 Prostate Specific Ag 1.1 ng/mL (0.00-2.5) 07/23/17 19:10 25-OH Vitamin D Total 37.3 NG/ML (30.0-100.0) 07/22/17 23:45 Procalcitonin < 0.05 NG/ML (0.19-0.49) L 07/24/17 05:20 Free T4 1.34 ng/dL (0.78-2.19) 07/22/17 23:45 Thyroxine (T4) 9.1 ug/dL (5.5-11.0) 07/22/17 23:45 TSH 3rd Generation 0.52 mIU/mL (0.46-4.68) 07/22/17 20:12 Venous Blood Potassium 3.2 mmol/L (3.6-5.2) L 07/22/17 17:10 Urine Color Yellow (YELLOW) 07/22/17 15:20 Urine Appearance Clear (CLEAR) 07/22/17 15:20 Urine pH 6.5 (4.7-8.0) 07/22/17 15:20 Ur Specific [place] 1.020 (1.005-1.035) 07/22/17 15:20 Urine Protein Negative mg/dL (<30 mg/dL) 07/22/17 15:20 Urine Glucose (UA) Negative mg/dL (NEGATIVE) 07/22/17 15:20 Urine Ketones Negative mg/dL (NEGATIVE) 07/22/17 15:20 Urine Blood Negative (NEGATIVE) 07/22/17 15:20 Urine Nitrate Negative (NEGATIVE) 07/22/17 15:20 Urine Bilirubin Negative (NEGATIVE) 07/22/17 15:20 Urine Urobilinogen 0.2 E.U./dL (<1 E.U./dL) 07/22/17 15:20 Ur Leukocyte Esterase Negative Syeda/uL (NEGATIVE) 07/22/17 15:20 Urine Opiates Screen Positive (NEGATIVE) H 07/23/17 00:30 Urine Methadone Screen Negative (NEGATIVE) 07/23/17 00:30 Ur Barbiturates Screen Negative (NEGATIVE) 07/23/17 00:30 Ur Phencyclidine Scrn Negative (NEGATIVE) 07/23/17 00:30 Ur Amphetamines Screen Negative (NEGATIVE) 07/23/17 00:30 U Benzodiazepines Scrn Negative (NEGATIVE) 07/23/17 00:30 U Oth Cocaine Metabols Negative (NEGATIVE) 07/23/17 00:30 U Cannabinoids Screen Negative (NEGATIVE) 07/23/17 00:30 RPR Nonreactive (NONREACTIVE) 07/22/17 20:12 HIV 1&2 Antibody Screen Negative (NEGATIVE) 07/24/17 05:20 Influenza Typ A,B (EIA) Negative for flu a/b (NEGATIVE) 07/23/17 00:00 - Hospital Course Hospital Course: Upon admission: 66 y/o alcoholic male with PMH COPD, HTN, Asthma, cataracts, L ear deafness, and CAD without stents who presents to the ED with sudden onset of LUQ abdominal pain after coughing hard this morning. He says he has never had this before. Patient says he has had a cough for 2 weeks productive of yellow sputum. He says after coughing this morning he felt a severe 10/10 sharp pain in his LUQ and noticed a hard mass protruding from his side. He says he had a bronchoscope last year and was diagnosed with a fungal infection in his lungs which he take voriconazole for. Patient admits to headache, dizziness, tinnitus , SOB. He denies sore throat, chest pain, N&V, D&C, LE pain, and LE swelling. Hospital course: Doug was admitted for cough with respiratory alkylosis 2/2 possible PNA vs COPD exacerbation. CT chest showed poss asp pneumotis, splenic granulma, consolidation post left lower lobe with hyperdensisties within it, kidney stone and cyst. Urology consulted (Dr. Kellogg). I&Os ordered as well as urine strain for stones. CTA chest showed no PE, LLL consolidation, endobronchial occlusion ( possibly mucus plug). Septic work up done and found to be negative. ID consulted (Kylee). Patient treated with mucomyst and xopenex, duonebs DARRON and PRN, Solu medrol 40, Pulmicort, Tessalon pearles, maxipime, doxy, and voriconazole. Flu and Pneumococcal vaccine were given. CT showed asymmetrical focal prominence of the left anterior abdominal wall musculature. GI consulted (Milad). Patinet given dilaudid and tyleol as needed as well as cold compresses. Patient has a history of alcohol dependence so he was put on CIWA protocol. He was given banana bags, thiamine, folic acid, ativan as needed, librium, and UDS was ordered. Patient had a doppler of bilateral LEs for elevated d-dimer and the doppler was negative. HTN 167/100 on admission was treated with clonidine and hydralazine as needed. Patient decided to leave [facility] for a social security office appointment. The risks associated were explained to him in full detail and patient was informed that he needed to continue IV antibiotics but he chose to leave anyways. . Patient was told to return to the ED if he noticed any worsening or changing of symptoms. Discharge Exam - Head Exam Head Exam: NORMAL INSPECTION - Eye Exam Eye Exam: EOMI - ENT Exam ENT Exam: Mucous Membranes Moist - Respiratory Exam Respiratory Exam: Rhonchi, Wheezes, NORMAL BREATHING PATTERN. absent: Accessory Muscle Use, Rales - Cardiovascular Exam Cardiovascular Exam: RRR, +S1, +S2 - GI/Abdominal Exam GI & Abdominal Exam: Tenderness (LUQ ) - Extremities Exam Extremities exam: normal inspection - Neurological Exam Neurological exam: Alert, Oriented x3 - Skin Skin Exam: Dry, Intact, Normal Color, Warm Discharge Plan - Follow Up Plan Condition: FAIR Disposition: AGAINST MEDICAL ADVICE Instructions: Viral Pneumonia (DC), Renal Colic (GEN) Referrals: Camilla Otero MD [Primary Care Provider] -
--- NOTE | 2017-07-24 17:33 | CARD ---
APPROVED REPORT EKG Measurement Heart [id number] <Conclusion> Sinus rhythm with marked sinus arrhythmia with occasional premature ventricular complexes Otherwise normal ECG
--- NOTE | 2017-07-24 17:39 | CP.PCM.PN ---
Subjective - Date & Time of Evaluation Date of Evaluation: 07/24/17 Time of Evaluation: 10:30 - Subjective Subjective: Breathing better, cough is better, pain on the left side of the abdomen is less , no fevers overnight. Objective - Vital Signs/Intake and Output Vital Signs (last 24 hours): Temp Pulse Resp BP Pulse Ox 97.8 F 87 17 148/91 H 94 L 07/24/17 00:00 07/24/17 05:00 07/24/17 00:00 07/24/17 00:00 07/24/17 00:00 Intake and Output: 07/24/17 07/24/17 06:59 18:59 Intake Total 240 Balance 240 - Medications Medications: Current Medications Acetaminophen (Tylenol 325mg Tab) 650 mg PO Q6H PRN PRN Reason: Pain, severe (8-10) Acetylcysteine (Acetylcysteine 20%) 4 ml IH [id number] [facility] Atorvastatin Calcium (Lipitor) 40 mg PO DIN [facility] Last Admin: 07/23/17 17:43 Dose: 40 mg Benzonatate (Tessalon Perles) 200 mg PO TID [facility] Last Admin: 07/23/17 17:32 Dose: Not Given Budesonide (Pulmicort Respules) 0.5 mg IH [id number] [facility] Last Admin: 07/23/17 19:37 Dose: 0.5 mg Chlordiazepoxide (Librium) 25 mg PO TID [facility] PRN Reason: Taper Stop: 07/26/17 19:59 Last Admin: 07/23/17 12:24 Dose: Not Given Chlordiazepoxide (Librium) 25 mg PO Q4H PRN PRN Reason: Withdrawl Last Admin: 07/23/17 21:00 Dose: 25 mg Clonidine HCl (Catapres) 0.1 mg PO Q6H PRN PRN Reason: SBP>=170 &/OR DBP>=100MMHG Last Admin: 07/23/17 17:30 Dose: 0.1 mg Enoxaparin Sodium (Lovenox) 40 mg SC DAILY [facility] PRN Reason: Protocol Last Admin: 07/23/17 10:09 Dose: 40 mg Folic Acid (Folic Acid) 1 mg PO DAILY [facility] Last Admin: 07/23/17 10:08 Dose: 1 mg Hydralazine HCl (Apresoline) 10 mg IVP Q6 PRN PRN Reason: SBP>=170&/OR DBP>=100MMHG Last Admin: 07/23/17 16:18 Dose: 10 mg Hydromorphone HCl (Dilaudid) 0.5 mg IVP Q4H PRN PRN Reason: Pain, moderate (4-7) Last Admin: 07/23/17 20:59 Dose: 0.5 mg Doxycycline Hyclate 100 mg/ (Sodium Chloride) 100 mls @ 100 mls/hr IVPB Q12 DARRON PRN Reason: Protocol Last Admin: 07/23/17 21:12 Dose: 100 mls/hr Cefepime HCl (Maxipime 2gm) 2 gm in 100 mls @ 100 mls/hr IVPB Q8 DARRON PRN Reason: Protocol Stop: 07/28/17 14:01 Last Admin: 07/24/17 05:57 Dose: 100 mls/hr Levalbuterol HCl (Xopenex) 0.63 mg IH Q6 [facility] Last Admin: 07/24/17 01:34 Dose: 0.63 mg Lorazepam (Ativan) 0.5 mg IVP Q6 PRN; Protocol PRN Reason: Symptoms of alcohol withdrawl Last Admin: 07/23/17 17:28 Dose: 0.5 mg Methylprednisolone (Solu-Medrol) 40 mg IVP Q8 [facility] Last Admin: 07/24/17 06:00 Dose: 40 mg Multivitamins (Thera Tab) 1 tab PO 0800 [facility] Ondansetron HCl (Zofran Inj) 4 mg IVP Q4H PRN PRN Reason: Nausea/Vomiting Pantoprazole Sodium (Protonix Ec Tab) 40 mg PO 0600,1600 [facility] Last Admin: 07/24/17 05:58 Dose: 40 mg Polyethylene Glycol (Miralax) 17 gm PO BID [facility] Last Admin: 07/23/17 17:32 Dose: 17 gm Thiamine HCl (Vitamin B1 Inj) 100 mg IV DAILY [facility] Stop: 07/25/17 10:01 Last Admin: 07/23/17 10:08 Dose: 100 mg Thiamine HCl (Vitamin B1 Tab) 100 mg PO DAILY [facility] Last Admin: 07/23/17 12:23 Dose: 100 mg Voriconazole (Vfend 200 Mg Tab) 200 mg PO Q12 DARRON PRN Reason: Protocol Last Admin: 07/23/17 21:03 Dose: 200 mg Zaleplon (Sonata) 5 mg PO HS PRN PRN Reason: Insomnia Last Admin: 07/23/17 23:15 Dose: 5 mg - Labs Labs: 07/24/17 05:20 07/23/17 05:20 PT 10.7 SECONDS (9.4-12.5) 07/22/17 11:40 INR 0.97 (0.93-1.08) 07/22/17 11:40 APTT 24.0 Seconds (25.1-36.5) L 07/22/17 11:40 - Constitutional Appears: Non-toxic - Head Exam Head Exam: NORMAL INSPECTION - ENT Exam ENT Exam: Mucous Membranes Moist - Neck Exam Neck Exam: absent: Meningismus - Respiratory Exam Respiratory Exam: Decreased Breath Sounds - Cardiovascular Exam Cardiovascular Exam: +S1, +S2 - GI/Abdominal Exam GI & Abdominal Exam: Soft. absent: Tenderness Assessment and Plan - Assessment and Plan (Free Text) Plan: Assessment Probable left lower lobe healthcare-associated pneumonia on top of fungal pneumonitis (being treated for months now) history of alcoholism HTN asthma CAD cataracts left ear deafness S/P appendectomy Plan continue Cefepime and Doxycycline day 2 and continue Voriconazole pending final blood, sputum cx results, as well as urine Legionella Ag; reviewed CT C/A/P reviewed Dr. Montero's consultation
--- NOTE | 2017-07-25 09:35 | DS ---
HOSPITAL COURSE: The patient signed out against medical advise despite multiple recommendations to stay in the hospital and complete treatment, but the patient left against medical advise. The patient was explained the risk and consequences of his signing off against medical advise by me and the electromedical equipment technician, but the patient left AMA. The patient was seen in room 363, bed 1. The patient stated that he wants to go home and take care of personal issues. Overnight nurse's notes were reviewed. PHYSICAL EXAMINATION: VITAL SIGNS: T-max on 07/24/2017 at 98.1, heart rates 87, 106, 85, and 87, blood pressures 138/98, 148/91, and 138/95, respirations 20, and O2 sat 97%. GENERAL: The patient is seen in room 363, bed 1. The patient is seen sitting and standing. HEENT: Head: Normocephalic, atraumatic. HEENT examination shows pink conjunctivae. Anicteric sclerae. No oropharyngeal lesion. NECK: No neck rigidity. CHEST: Still shows rhonchi, crackles and wheezing in the left posterior lung field. CARDIOVASCULAR: S1 and S2. Questionable soft systolic murmur left sternal border, right second intercostal space, left second intercostal space. ABDOMEN: Protuberant. Positive bowel sounds. GENITALIA: Male. RECTAL: Deferred. EXTREMITIES: No pitting edema, no calf tenderness, no Homans' sign. NEUROLOGIC: The patient is alert, awake, and responsive. Neurologically, the patient also has tremulousness of the upper extremity. DIAGNOSTIC STUDIES: 07/24/2017; WBC 12.0, hemoglobin and hematocrit 14.2 and 41.3, and platelets 115.. D-dimer was 435. The patient's sodium 139, potassium 4.2, chloride 105, CO2 23, anion gap 15, BUN 20, creatinine 0.8, GFR greater than 60, glucose 156, calcium 9.1, and magnesium 2.3. LFTs are normal. Procalcitonin level 0.05. PSA was 1.2. Cholesterol 212 and HDL 107. RPR, HIV, and influenza negative. The sputum and urine cultures are negative.. EKG and renal ultrasound were reviewed. The patient was seen by Gastroenterology, Pulmonary, Urology, and Psychiatry. Their recommendations were noted. IMPRESSION AND PLAN: 1. Severe noncompliance. 2. Inappropriate behavior. 3. Multilobar bilateral community-acquired versus healthcare-associated pneumonia. 4. Tachycardia. 5. Uncontrolled hypertension (resolving). 6. Delirium tremors and alcohol withdrawal. 7. Alcohol use disorder and alcohol dependence. 8. Leukocytosis. 9. Thrombocytopenia. 10. Steroid-induced hyperglycemia. 11. Lactic acidosis (resolved). 12. A 7 mm non-obstructing left nephrolithiasis without hydronephrosis. 13. Obesity. 14. Severe noncompliance and inappropriate behavior. 15. Sinus arrhythmia. 16. Left lower lobe pneumonia, consolidation with left upper quadrant pain and pleuritic pain. 17. Acute exacerbation of chronic obstructive pulmonary disease with asthmatic bronchitis. 18. History of fungal pneumonitis. 19. History of appendectomy. 20. Right renal exophytic lesion. 21. Alcohol dependence and addiction. 22. Insomnia. 23. Alcohol withdrawal with delirium tremens. 24. Possible substance-induced mood disorder. PLAN: At this time, the patient signed out against medical advise despite my recommendations to continue treatment in the hospital and despite electromedical equipment technician, Dr. Zarate's recommendation to continue inpatient hospitalization with continuation of IV antibiotic, monitoring and stabilization of the patient's blood pressure and treatment of alcohol withdrawal syndrome, but the patient did not want to stay in the hospital. The patient was explained all the risks and consequences, but the patient signed out against medical advice. Time spent in entire process more than 45 minutes. Ezekiel Shankar MD
== END 2017-07-24 12:48 | disposition left against medical advice (07) | DRG 190 ==
LOC: ED 11:20 → ERH 14:30 → 3RNO 18:16
PROVIDERS: ADMIT Internal Medicine; ATTEND Internal Medicine
DX: J44.0 Chronic obstructive pulmonary disease with (acute) lower respiratory infection (principal); J18.9 Pneumonia, unspecified organism; E87.4 Mixed disorder of acid-base balance; F10.231 Alcohol dependence with withdrawal delirium; D69.6 Thrombocytopenia, unspecified; I11.9 Hypertensive heart disease without heart failure; J98.11 Atelectasis; F10.24 Alcohol dependence with alcohol-induced mood disorder; J44.1 Chronic obstructive pulmonary disease with (acute) exacerbation; I25.10 Atherosclerotic heart disease of native coronary artery without angina pectoris; H91.92 Unspecified hearing loss, left ear; N20.0 Calculus of kidney; G47.00 Insomnia, unspecified; J20.9 Acute bronchitis, unspecified; H26.9 Unspecified cataract; R73.9 Hyperglycemia, unspecified; T38.0X5A Adverse effect of glucocorticoids and synthetic analogues, initial encounter; M79.81 Nontraumatic hematoma of soft tissue; Z91.19 Patient's noncompliance with other medical treatment and regimen; Y90.9 Presence of alcohol in blood, level not specified; E66.9 Obesity, unspecified; Z68.27 Body mass index [BMI] 27.0-27.9, adult; Z87.891 Personal history of nicotine dependence; Z88.6 Allergy status to analgesic agent

== ENCOUNTER 2018-08-15 08:09 | Inpatient (IN) | payer MEDICARE, BC ==
[2018-08-15 08:27] VITALS: BMI 28.1
--- NOTE | 2018-08-15 09:25 | ED PDOC ---
Arrival/HPI - General Chief Complaint: Syncope Time Seen by Provider: 08/15/18 08:35 Historian: Patient - History of Present Illness Narrative History of Present Illness (Text): 08/15/18 09:26 68 year old male, whose past medical history includes hypertension, who presents to the Emergency department complaining of syncope. 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 Patient states his right eye was hurting after he fell. He denies FB sensation, change in his vision, drainage from his eye, chest pain, SOB, neck pain/stiffness, abd pain, nausea, vomiting, weakness, paresthesias. Patient states he hasn't taken his blood pressure medication in 3 days. Patient notes he went on an alcohol binge over the past 3 days. Patient admits to drinking this morning around 1am. Time/Duration: Prior to Arrival Symptom Onset: Gradual Symptom Course: Unchanged Activities at Onset: Light Context: Home Past Medical History - Provider Review Nursing Documentation Reviewed: Yes - Past History Past History: Non-Contributing - Infectious Disease Hx of Infectious Diseases: None - Tetanus Immunization Tetanus Immunization: Unknown - Cardiac Hx Cardiac Disorders: Yes Hx Hypertension: Yes - Pulmonary Hx Chronic Obstructive Pulmonary Disease (COPD): Yes - Neurological Hx Neurological Disorder: No - HEENT Hx HEENT Disorder: Yes Hx Cataracts: Yes Hx Deafness: Yes (left ear/congenital) - Renal Hx Renal Disorder: No - Endocrine/Metabolic Hx Endocrine Disorders: No - Hematological/Oncological Hx Blood Disorders: No - Integumentary Hx Dermatological Disorder: No - Musculoskeletal/Rheumatological Hx Musculoskeletal Disorders: No - Gastrointestinal Hx Gastrointestinal Disorders: No - Genitourinary/Gynecological Hx Genitourinary Disorders: No - Psychiatric Hx Psychophysiologic Disorder: No Hx Substance Use: No - Past Surgical History Past Surgical History: No Previous - Surgical History Hx Appendectomy: Yes Hx Tonsillectomy: Yes Other/Comment: polyps removed from right ear - Anesthesia Hx Anesthesia: Yes Hx Anesthesia Reactions: No Hx Malignant Hyperthermia: No - Suicidal Assessment Feels Threatened In Home Enviroment: No Family/Social History - Physician Review Nursing Documentation Reviewed: Yes Family/Social History: Unknown Family HX Smoking Status: Never Smoked Hx Alcohol Use: Yes Hx Substance Use: No Hx Substance Use Treatment: No Allergies/Home Meds Allergies/Adverse Reactions: Allergies aspirin Adverse Reaction (Verified 07/22/17 15:14) COUGH wheezing ibuprofen [From Motrin] Adverse Reaction (Verified 07/22/17 15:14) COUGH wheezing/eye redness Home Medications: Home Meds Medication Instructions Recorded Confirmed Albuterol 0.083% [Albuterol 3 ml IH Q6 PRN 07/22/17 08/15/18 Sulfate 3 Ml] Atorvastatin [Lipitor] 40 mg PO DAILY 07/22/17 08/15/18 Metoprolol Succinate XL [Toprol XL] 25 mg PO DAILY 07/22/17 08/15/18 amLODIPine [Norvasc] 10 mg PO DAILY 07/22/17 08/15/18 Review of Systems - Physician Review All systems were reviewed & negative as marked: Yes - Review of Systems Constitutional: Normal Eyes: Normal ENT: Normal Respiratory: Normal. absent: SOB, Cough Cardiovascular: Normal. absent: Chest Pain Gastrointestinal: Normal. absent: Abdominal Pain, Diarrhea, Nausea, Vomiting Genitourinary Male: Normal. absent: Frequency, Hematuria Musculoskeletal: Normal. absent: Back Pain, Neck Pain Skin: Normal. absent: Rash Neurological: Other (syncope). absent: Headache, Dizziness Endocrine: Normal Hemo/Lymphatic: Normal Psychiatric: Normal Physical Exam Vital Signs Reviewed: Yes Vital Signs Temp Pulse Resp BP Pulse Ox 08/15/18 08:10 97.9 F 100 H 18 100/53 L 89 L Temperature: Afebrile Blood Pressure: Hypotensive Pulse: Regular Respiratory Rate: Normal Appearance: Positive for: Well-Appearing, Non-Toxic, Comfortable, Other (smells like alcohol) Pain Distress: None Mental Status: Positive for: Alert and Oriented X 3 - Systems Exam Head: Present: Atraumatic, Normocephalic Pupils: Present: PERRL Extroacular Muscles: Present: EOMI Conjunctiva: Present: Normal Ears: Present: NORMAL TM (no hemotempanum) Mouth: Present: Moist Mucous Membranes Neck: Present: Normal Range of Motion Respiratory/Chest: Present: Clear to Auscultation, Good Air Exchange. No: Respiratory Distress, Accessory Muscle Use Cardiovascular: Present: Regular Rate and Rhythm, Normal S1, S2. No: Murmurs Abdomen: No: Tenderness, Distention, Peritoneal Signs Back: Present: Normal Inspection Upper Extremity: Present: Normal Inspection. No: Cyanosis, Edema Lower Extremity: Present: Normal Inspection. No: Edema Neurological: Present: GCS=15, CN II-XII Intact, Speech Normal Skin: Present: Warm, Dry, Normal Color. No: Rashes Psychiatric: Present: Alert, Oriented x 3, Normal Insight, Normal Concentration Medical Decision Making ED Course and Treatment: Impression: 68 year old male presents to the Emergency department complaining of syncope. Plan: -- CT Head -- CT Maxillofacial -- Cardiac ISO -- Chest X-ray -- Labs -- Dextrose -- Sodium Chloride -- UA -- Reassess and disposition Progress Notes: 08/15/18 09:18 EKG reviewed, shows NSR at 85 bpm. Normal intervals. Normal axis. No ST elevations. No ischemia. 08/15/18 10:41 CT Head reviewed, shows: IMPRESSION: No acute intracranial abnormalities. No significant findings to account for the clinical presentation. Severe pizarro sinusitis. CT Maxillofacial reviewed, shows: IMPRESSION: Profound pansinusitis, combination of chronic and acute findings. Postoperative changes medial wall of both maxillary sinuses noted. No evidence of acute facial fracture/trauma. 08/15/18 11:25 Pt given breathing treatment and SOLU-Medrol. 08/15/18 11:51 Chest X-ray reviewed, shows: IMPRESSION: No active disease. No significant interval change compared to the prior examination(s). 08/15/18 12:44 Patient states he has a headache in the frontal area. Will be given Tylenol and Augmentin. 08/15/18 13:30 Upon reevaluation, patient still experiencing wheezing. Oxygen saturation is 90. Pt will be admitted. Call put out to Dr. Nolan. 08/15/18 13:[address] Nolan, who is aware and agrees with plan. Accepts pt to service. - Scribe Statement The provider has reviewed the documentation as recorded by the Scribe Meredith Talamantes All medical record entries made by the Scribe were at my direction and personally dictated by me. I have reviewed the chart and agree that the record accurately reflects my personal performance of the history, physical exam, medical decision making, and the department course for this patient. I have also personally directed, reviewed, and agree with the discharge instructions and disposition. Disposition/Present on Arrival - Present on Arrival Any Indicators Present on Arrival: No History of DVT/PE: No History of Uncontrolled Diabetes: No Urinary Catheter: No History of Decub. Ulcer: No History Surgical Site Infection Following: None - Disposition Have Diagnosis and Disposition been Completed?: Yes Diagnosis: COPD exacerbation, Syncope, Pansinusitis Disposition: HOSPITALIZED Disposition Time: 13:35 Patient Plan: Admission Patient Problems: Current Active Problems Problem Status Onset COPD exacerbation Acute Condition: STABLE
[2018-08-15] MEDS ORDERED: Multivitamin (MVI) 10 ML, Thiamine 100 MG, Folic Acid 1 MG in Dextrose 5% In Water 1,00... IV ONE (09:26)
[2018-08-15] MEDS: Sodium Chloride 0.9% 1,000 ML IV SCH ×2 (09:46→16:40)
[2018-08-15 10:03] LABS: ALB/GLOB RATIO 1.5 (1.1-1.8); ALBUMIN 4.2 g/dL (3.0-4.8); ALT/SGPT 41 U/L (7-56); AST/SGOT 37 U/L (17-59); BLOOD UREA NITROGEN 17 mg/dL (7-21); CALCIUM 8.6 mg/dL (8.4-10.5); GFR NON-AFRICAN AMERICAN > 60
[2018-08-15 10:04] LABS: BASO # 0.08 K/mm3 (0.0-2.0); BASO % 0.9 % (0.0-3.0); EOS # 0.5 (0.0-0.7); EOS % 5.8 % (1.5-5.0); GRAN # 6.12 (1.4-6.5); GRAN % 68.5 % (50.0-68.0); HEMOGLOBIN 16.1 g/dL (14.0-18.0); LYMPH # 1.8 (1.2-3.4); LYMPH % 20.1 % (22.0-35.0); MEAN CELL VOLUME 92.7 fl (80.0-105.0); MEAN CORPUSCULAR HEMOGLOBIN 31.6 pg (25.0-35.0); MEAN CORPUSCULAR HGB CONC 34.1 g/dl (31.0-37.0); MEAN PLATELET VOLUME 9.4 fl (7.0-11.0); MONO # 0.4 (0.1-0.6); MONO % 4.7 % (1.0-6.0); RBC 5.09 10^6/uL (3.5-6.1); RED CELL DISTRIBUTION WIDTH 13.4 % (11.5-14.5); WHITE BLOOD COUNT 8.9 10^3/uL (4.5-11.0)
[2018-08-15 10:14] LABS: TROPONIN I < 0.01 ng/mL
--- NOTE | 2018-08-15 10:33 | CT ---
Date of service: 08/15/2018 PROCEDURE: CT HEAD WITHOUT CONTRAST. HISTORY: syncope COMPARISON: 02/01/2017. CT scan of the head. TECHNIQUE: Axial computed tomography images were obtained through the head/brain without intravenous contrast. Supplemental Coronal and Sagittal projections created and reviewed. Radiation dose: Total exam DLP = 967.17 mGy-cm. This CT exam was performed using one or more of the following dose reduction techniques: Automated exposure control, adjustment of the mA and/or kV according to patient size, and/or use of iterative reconstruction technique. FINDINGS: HEMORRHAGE: No intracranial hemorrhage. BRAIN: No mass effect or edema. Cortical and cerebellar atrophy, periventricular small vessel disease. This includes area of low-attenuation in the insula on the right, similar finding noted previously. Small serpiginous structure likely venous angioma again identified. This represents a stable finding. VENTRICLES: Unremarkable. No hydrocephalus. CALVARIUM: Unremarkable. PARANASAL SINUSES: Bilateral maxillary sinusitis. Posterior discal changes identified medial wall of the maxilla bilaterally. Severe ethmoid and frontal sinusitis also noted. These were not seen on the prior CT scans. MASTOID AIR CELLS: Unremarkable as visualized. No inflammatory changes. OTHER FINDINGS: None. IMPRESSION: No acute intracranial abnormalities. No significant findings to account for the clinical presentation. Severe pizarro sinusitis.
--- NOTE | 2018-08-15 10:37 | CT ---
Date of service: 08/15/2018 PROCEDURE: CT MAXILLOFACIAL BONES WITHOUT CONTRAST HISTORY: syncope/head trauma COMPARISON: None available. TECHNIQUE: Contiguous axial CT images of the maxillofacial bones were obtained. Coronal and sagittal reformats were generated. Radiation dose: Total exam DLP = 933.01 mGy-cm. This CT exam was performed using one or more of the following dose reduction techniques: Automated exposure control, adjustment of the mA and/or kV according to patient size, and/or use of iterative reconstruction technique. FINDINGS: NASAL BONES: No acute nasal bone fracture. ORBITS: No evidence of intra-ocular or retro conal abnormality. PARANASAL SINUSES/ MASTOIDS: Profound pansinusitis with virtually the entire paranasal sinus complex filled with fluid and debris. There postoperative changes medial wall of both maxillary sinuses. High density material identified primarily within the maxillary and frontal sinuses suggest an acute, superimposed process. MAXILLA: Unremarkable. MANDIBLE/ TEMPOROMANDIBULAR JOINTS: Unremarkable. SKULL BASE: Unremarkable. TEMPORAL BONES: Middle ears and mastoid grossly unremarkable. OTHER FINDINGS: None. IMPRESSION: Profound pansinusitis, combination of chronic and acute findings. Postoperative changes medial wall of both maxillary sinuses noted. No evidence of acute facial fracture/trauma.
--- NOTE | 2018-08-15 11:43 | RAD ---
Date of service: 08/15/2018 HISTORY: syncope COMPARISON: 07/22/2017 FINDINGS: LUNGS: No active pulmonary disease. PLEURA: No significant pleural effusion identified, no pneumothorax apparent. CARDIOVASCULAR: No atherosclerotic calcification present Normal. OSSEOUS STRUCTURES: No significant abnormalities. VISUALIZED UPPER ABDOMEN: Normal. OTHER FINDINGS: None. IMPRESSION: No active disease. No significant interval change compared to the prior examination(s).
[2018-08-15] MEDS: Albuterol-Ipratrop 3 mg / 0.5 (3 ml) UD IH SCH ×3 (12:00→12:46)
[2018-08-15] MEDS ORDERED: Amoxicillin-Clav 875-125 mg Tab PO STA (12:21)
[2018-08-15] MEDS ORDERED: Metoprolol Succinate 25 mg XL Tab PO STA (13:42)
[2018-08-15] MEDS: MethylPREDNISolone 40 mg Vial IVP SCH ×2 (14:24→23:27)
[2018-08-15 15:09] LABS: URINE APPEARANCE CLEAR (CLEAR); URINE BILIRUBIN NEGATIVE (NEGATIVE); URINE BLOOD TRACE-INTACT (NEGATIVE); URINE COLOR YELLOW (YELLOW); URINE GLUCOSE (UA) NEGATIVE (NEGATIVE); URINE LEUKOCYTE ESTERASE NEGATIVE Leu/uL (NEGATIVE); URINE PROTEIN TRACE mg/dL (<30 mg/dL); URINE UROBILINOGEN 0.2 E.U./dL (<1 E.U./dL)
[2018-08-15] MEDS: Sodium Chloride 0.45% 1,000 ML IV SCH (15:12)
[2018-08-15 15:37] LABS: BARBITURATES, UR NEGATIVE (NEGATIVE); BENZODIAZEPINES, UR NEGATIVE (NEGATIVE); OPIATES, UR NEGATIVE (NEGATIVE); PHENCYCLIDINE, UR NEGATIVE (NEGATIVE)
[2018-08-15] MEDS ORDERED: Albuterol-Ipratrop 3 mg / 0.5 (3 ml) UD IH SCH (18:00)
--- NOTE | 2018-08-15 23:12 | PN ---
DATE: 08/15/2018 SUBJECTIVE: I was called down to the ER to visit Mr. Clark. He is a 68-year-old white man who presents with a passing out syncope, kind of a history for few seconds. He also said his right eye was hurting when he fell, questionable change in vision, drainage, no foreign body, he is little bit weak. He did not take his blood pressure pills in 3 days. He is also a major drinker and stop drinking a few days ago, could be going to DTs when he passed out. He has history of hypertension, COPD, cataracts, left ear congenital deafness, appendectomy, tonsillectomy, polyps removed from his right ear. FAMILY HISTORY: Unknown family history. SOCIAL HISTORY: Never smoked. Drinks a lot of alcohol, basically every day for the past few days. ALLERGIES: TO ASPIRIN, IBUPROFEN. REVIEW OF SYSTEMS: He is having sinus issues. No acute vision or hearing changes, but he has chronic and old vision and hearing changes. He does have some cough. No shortness of breath. No chest pain or palpitations. No abdominal pain, nausea, vomiting, constipation, diarrhea. No problems urinating. No back pain or neck pain. No rashes that he knows of. No headache or dizziness, but he did pass out. No anxiety. No sweating. He is comfortable. His hands were having tremors. PHYSICAL EXAMINATION GENERAL: He is alert, little upset. He alcohol, alert and oriented x3. VITAL SIGNS: He has temperature 97.9, pulse 100, respiratory rate 80, blood pressure 100/53, 89% O2 sat on room air. HEENT: Head is atraumatic, normocephalic. Extraocular muscles are intact. Pupils are equal and reactive to light. Throat is dry. Ear, normal TM. Mouth is dry. NECK: Supple. CARDIOPULMONARY: Regular rate. Normal S1, S2. LUNGS: Decreased breath sounds bilaterally. No wheezes, rhonchi or rales at this time. ABDOMEN: Soft, nontender. Positive bowel sounds. EXTREMITIES: Have no edema. NEUROLOGIC: GCS is 15. Cranial nerves II through XII grossly intact. Speech is normal. Alert and oriented x3. SKIN: Warm and dry. No rash. Normal insight. He had complained of syncope, also COPD, tremors from possibly alcohol withdrawal. LABORATORY DATA: He had a CAT scan of the head showed no acute intracranial abnormalities. EKG showed normal sinus rhythm at 85 beats per minute. No ST elevations. No ischemia. CT of the sinuses show profound pansinusitis,combination of chronic on acute. No evidence of acute facial or fracture trauma. He was given Solu-Medrol and breathing treatments. He has a bad frontal headache. He has white count of 8.9, hemoglobin 16.1, hematocrit 47.2, platelets 150. Sodium 141, potassium 4.2, BUN 70, creatinine 0.9, GFR is greater than 60, sugar 77, calcium 8.6, magnesium 1.8. Total bili is 0.6, AST is 37, ALT is 41, alk phos 65. Lactate dehydrogenase is 517, total creatine kinase is 69. Troponin I is less than 0.01, total protein 7, albumin is 4.2 and globulin 2.9. Urine was negative. Toxicology showed completely negative. MEDICATIONS: He takes albuterol, Lipitor, Toprol, Norvasc, but not lately. ASSESSMENT AND PLAN: An consult with pulmonary for chronic obstructive pulmonary disease, asthma, Psychiatry, first tremors in detox and Dr. Shetty for his syncope. He will be on Solu-Medrol, metoprolol, Norvasc, Lipitor, Librium, Ativan, IV fluids. We will put him on Rocephin for the IV for his pansinusitis, physical therapy and oxygen. Joseph Nolan DO [facility]
[2018-08-16] MEDS: Albuterol-Ipratrop 3 mg / 0.5 (3 ml) UD IH SCH ×2 (01:28→09:31)
[2018-08-16] MEDS: MethylPREDNISolone 40 mg Vial IVP SCH (04:47)
[2018-08-16 06:39] LABS: GRAN # 5.7 (1.4-6.5); GRAN % 81.7 % (50.0-68.0); HEMOGLOBIN 15.2 g/dL (14.0-18.0); LYMPH # 0.8 (1.2-3.4); LYMPH % 10.8 % (22.0-35.0); MEAN CELL VOLUME 91.1 fl (80.0-105.0); MEAN CORPUSCULAR HEMOGLOBIN 31.3 pg (25.0-35.0); MEAN CORPUSCULAR HGB CONC 34.4 g/dl (31.0-37.0); MEAN PLATELET VOLUME 9.8 fl (7.0-11.0); MONO # 0.5 (0.1-0.6); MONO % 7.5 % (1.0-6.0); RBC 4.85 10^6/uL (3.5-6.1); RED CELL DISTRIBUTION WIDTH 12.9 % (11.5-14.5)
[2018-08-16 07:00] LABS: ALB/GLOB RATIO 1.5 (1.1-1.8); ALBUMIN 4.3 g/dL (3.0-4.8); ALT/SGPT 34 U/L (7-56); AST/SGOT 31 U/L (17-59); BLOOD UREA NITROGEN 17 mg/dL (7-21); CALCIUM 9.1 mg/dL (8.4-10.5); GFR NON-AFRICAN AMERICAN > 60
[2018-08-16] MEDS: Metoprolol Succinate 25 mg XL Tab PO SCH ×2 (08:39→10:00)
[2018-08-16] MEDS ORDERED: MethylPREDNISolone 40 mg Vial IVP SCH (08:40)
[2018-08-16] MEDS: cefTRIAXone 1 gm 1 GM/100 ML BAG IVPB SCH ×2 (08:50→10:00)
--- NOTE | 2018-08-16 09:02 | CARD ---
APPROVED REPORT Date of service: 08/15/2018 EKG Measurement Heart [id number] <Conclusion> Normal sinus rhythm Septal infarct, age undetermined NSSTW changes
[2018-08-16] MEDS ORDERED: Metoprolol Succinate 25 mg XL Tab PO SCH (10:00)
--- NOTE | 2018-08-16 10:07 | PN ---
DATE: 08/16/2018 SUBJECTIVE: I saw him sitting up in bed. He is less jittery without the alcohol. Medications are helping him. He is on IV fluid, Ativan, Augmentin, dextrose, Catapres, DuoNeb, Librium, Lipitor, Norvasc, Rocephin, Solu-Medrol down to 30, I will decrease the Toprol, Toradol and Tylenol and discontinuing the Augmentin that is good. OBJECTIVE: VITAL SIGNS: 97 temperature, 96 pulse, 145/105 blood pressure. He did not receive his blood pressure pills. They asked the nurse to give him 2 this morning now, 18 respiratory rate, 96% O2 sat. HEENT: His head is atraumatic, normocephalic. HEART: Regular rate. LUNGS: Decreased breath sounds but clear. ABDOMEN: Soft. EXTREMITIES: No edema. Less tremors today. LABORATORY DATA: He has a 7 white count, 15.2 hemoglobin, 44.2 hematocrit with 153 platelets. 137 sodium, potassium 5, BUN is 17, creatinine 0.8, GFR is greater than 60, sugar is 196, calcium is 9.1, total bili is one. AST is 31, ALT is 35, alk phos 99, troponin is less than 0.01, and total protein 7.1. He is here for alcohol detox, DT, COPD, chronic sinusitis, syncope and hypertension. Multiple consults were called in mostly if it pans out. Joseph Nolan DO MTDChris
--- NOTE | 2018-08-16 12:52 | CON ---
PULMONARY CONSULTATION NOTE DATE: 08/16/2018 REFERRING PHYSICIAN: Joseph Nolan DO REASON FOR CONSULT: Chronic obstructive pulmonary disease, asthma, sleep apnea syndrome and syncope. HISTORY OF PRESENT ILLNESS: This is a 68-year-old male with past medical history of chronic obstructive pulmonary disease, asthma, sleep apnea syndrome, cataracts, left ear congenital deafness, appendectomy, tonsillectomy, polyps removal from his right ear, who presented to the emergency room complaining of syncopal episode. The patient reported that he was on an alcohol binge then had stopped drinking, did not take his blood pressure medication for few days then experienced syncopal episode. PAST MEDICAL HISTORY: As per history of present illness. ALLERGIES: METHYLPREDNISOLONE, ASPIRIN AND IBUPROFEN. SOCIAL HISTORY: Former smoker, quit 18 years ago, positive alcohol abuse and no illicit drug use. FAMILY HISTORY: No significant cardiopulmonary disease reported. MEDICATIONS: DuoNeb 3 mL inhalation every 6 hours, Norvasc 10 mg p.o. daily, Lipitor 40 mg at dinner, Rocephin 1 g IV piggyback daily, Librium 25 mg every 6 hours p.r.n., Catapres 0.1 mg p.o. twice a day, Toradol 30 mg IV push p.r.n., Ativan 0.5 mg IV push every 6 hours p.r.n., Toprol XL 50 mg p.o. daily, prednisone 40 mg p.o. daily and sodium chloride 1000 mL at 40 mL per hour. REVIEW OF SYSTEMS: No headache, chest pain, abdominal pain, nausea, vomiting, diarrhea, leg pain or leg swelling reported. The patient does report cough, some wheezing, shortness of breath and nasal congestion. PHYSICAL EXAMINATION: GENERAL: No acute distress. VITAL SIGNS: Blood pressure 145/105, pulse 96, temperature 97, and oxygen saturation 96%. HEENT: Dry mucous membranes. Mallampati score of 4. No maxillary sinus tenderness. LUNGS: Rhonchi bilaterally. ABDOMEN: Soft and nontender. No distention. No organomegaly. EXTREMITIES: No bilateral lower extremity edema. NEUROLOGIC: Awake, alert and verbal. Follows simple commands. LABORATORY DATA: Reviewed. WBC 7, RBC 4.85, hemoglobin 15, hematocrit 44 and platelets 153. Sodium 137, potassium 5, chloride 102, carbon dioxide 20, anion gap 12, BUN 17, creatinine 0.8, GFR greater than 60, random glucose 196, calcium 9.1, total bilirubin 1, AST 31, ALT 34, alkaline phosphatase 59, total protein 7.1, albumin 4.3, globulin 2.8 and albumin-globulin ratio 1.5. DIAGNOSTIC DATA: Head CT shows no acute intracranial abnormalities, no significant findings clinical presentation, severe pansinusitis. Maxillofacial CT showed profound pansinusitis,combination of chronic and acute findings, postoperative changes medial wall maxillary sinus is noticed. No evidence of acute facial fracture or trauma. Chest x-ray shows no active disease. Electrocardiogram, normal sinus rhythm. IMPRESSION AND PLAN: Acute on chronic sinusitis, chronic obstructive pulmonary disease, asthma, hypertension, sleep apnea syndrome and alcohol abuse possibly undergoing delirium tremens. Pulmonary point of view, we will start the patient on nasal saline spray every 2 hours, we will add Singulair at bedtime and Claritin at bedtime. We will discontinue Rocephin and start Zosyn, as it has better coverage for sinusitis. We will add deep venous thrombosis prophylaxis, Lovenox 40 mg daily and gastric prophylaxis, Protonix 40 mg at bedtime. Continue inhaled bronchodilators. We will add Pulmicort, continue steroids. We will not add continuous positive airway pressure machine at this time due to acute sinusitis. Once sinusitis is better, we will consider adding continuous positive airway pressure machine. The patient should be retested for sleep apnea with sleep study at outpatient. The patient will need full PFT as outpatient. This patient was seen and examined with Dr. Marti. Discussed assessment and plan as described above. Thank you for this consult and we will follow with you. Ishmael Carter APN Sara Marti MD
[2018-08-16 13:42] VITALS: RESP 20
--- NOTE | 2018-08-16 13:59 | CON ---
DATE: 08/16/2018 CHIEF COMPLAINT AND HISTORY OF PRESENT ILLNESS: This is 68-year-old male with history of hypertension and came to the hospital for syncope. CAT scan of the head showed no acute intracranial abnormality. Currently, passed out for a few seconds. He is not taking his blood pressure medications in few days and therefore he was hypertensive throughout the hospital. He also went to an alcohol binge over the past 3 days and admits to drinking in the morning around prior to his arrival for syncope. Currently, no focal neurological deficits, seen on examination, mildy less jittery today. Psychiatric evaluation is currently pending. He is on COPD exacerbation treatment. Blood sugar today is 196. No focal deficits on neuro exam. PAST MEDICAL HISTORY: As above. ALLERGIES: METHYLPREDNISOLONE, ASPIRIN AND IBUPROFEN. REVIEW OF SYSTEMS: A 14-point review of systems was negative except as per HPI. SOCIAL HISTORY: Drinks alcohol. Nonsmoker. No illicit drug use. FAMILY HISTORY: Noncontributory. MEDICATIONS: Reviewed by nurses' reconciliation sheet. LABORATORY DATA: Sodium is 137, potassium 5, chloride 102, carbon dioxide 28, BUN 17, and creatinine 0.8, random glucose of 196. PHYSICAL EXAMINATION: GENERAL: The patient is sitting up in bed, in no acute distress. VITAL SIGNS: Temperature 97, pulse 88, blood pressure 160/112, respiratory rate 18, oxygen saturation 98% on room air. HEENT: Head is atraumatic and normocephalic. PERRLA. Extraocular muscles intact. NECK: Supple. No JVD. No adenopathy noted. LUNGS: Clear to auscultation. No adventitious sounds. HEART: S1 and S2, normal rate and rhythm. No murmurs, rubs or gallops. ABDOMEN: Soft, nontender, nondistended. Bowel sounds present. EXTREMITIES: No clubbing, no cyanosis. Peripheral pulses are +2 felt bilaterally. NEUROLOGIC: The patient is alert, oriented to person, place, month and year. Speech is fluent without any errors. Cranial nerves II through XII intact. Motor exam; moves all extremities equally, toes downgoing bilaterally. Sensory, light touch, pinprick, proprioception. DTRs are 2+ throughout and 1 at both knees and ankles. Coordination: [id number] intact. No dysmetria noted. Gait is deferred for now. Mild jittery but otherwise no tremors. Gait is deferred for now. IMPRESSION: Syncope most likely vasovagal. CAT scan showed no intracranial abnormality. RECOMMENDATIONS: At this time recommend: 1. protocol. 2. Continue with his Singulair and prednisone daily for his underlying COPD. 3. Recommend to keep his blood pressure 130/140 systolic, diastolic 70 to 80. Adjust his blood pressure medications since he is hypertensive and aspirin 81 mg and recommend heart-healthy diet and reduction in alcohol drinking. Thank you for this consult. All Shetty MD
[2018-08-16] MEDS: Sodium Chloride 0.45% 1,000 ML IV SCH ×2 (14:00→19:10)
[2018-08-16] MEDS: Piperacill/Tazo 4.5gm in NS 4.5 GM/100 ML BAG IVPB SCH ×2 (14:28→22:08)
[2018-08-16] MEDS: Albuterol-Ipratrop 3 mg / 0.5 (3 ml) UD IH PRN (21:24)
--- NOTE | 2018-08-16 22:13 | CON ---
DATE OF CONSULTATION: 08/16/2018 HISTORY OF PRESENT ILLNESS: Shortly, the patient is a 68-year-old male with multiple medical issues including hypertension and history of alcohol use disorder. The patient came to the hospital complaining of syncopal episode. Psych consult was called for evaluation of depressive symptoms and possible anxiety. The patient was seen and examined and discussed with the medical team. The patient presented to be alert and oriented. The patient was observed while walking with physical therapy to have steady gait. The patient reported that he has a history of alcohol use disorder. The patient has a history of inpatient rehab for 3 weeks in 2008 over at [facility], after which the patient was sober for 15 months. The patient reported history of seeing Dr. Bj Fowler because of anxiety and work-related stress. The patient reported that he was prescribed Xanax, but he stopped going to Dr. Bj Fowler. The patient denied seeing things. Denied hearing things. The patient reported that most recently he was drinking alcohol about on a daily basis, which affected his work as well as relationship with his . The patient is afraid that his is going to leave him. The patient denied history of suicidal attempts. The patient denied history of being admitted to the psychiatric inpatient unit. The patient denied any thoughts of harming himself during the interview. Denied psychosis. The patient does not appear to be psychotic. VITAL SIGNS: Reviewed. Temperature 97.6, pulse 75, blood pressure 135/83, respirations 20. MEDICATIONS: Reviewed. The patient is on DuoNeb, Norvasc, Lipitor, Librium 25 mg p.o. every 6 hours as needed for alcohol withdrawal symptoms, Catapres, Claritin, Ativan, Toprol, Singulair, Zosyn, prednisone, sodium chloride. LABS: Reviewed. Most recent was from today. Toxicology was negative. MENTAL STATUS EXAM: The patient presented to be alert and oriented, pleasant, socially appropriate. Mood described as "I have a lot of problems." Affect was constricted, but reactive. Mood congruent. Thought process was coherent and goal directed. Thought content, the patient denied visual, auditory, or tactile hallucinations. Denied paranoid ideations. The patient denied thoughts of harming himself or others. Denied intent or plan. Insight and judgment seem to be fair. Impulses are well controlled. IMPRESSION: Mood disorder due to general medical condition, rule out substance-induced mood disorder. PLAN: The patient expressed his interest to speak to family counseling services. Music Cataloguer are involved. Discussed with case management. The patient had good response from inpatient rehab. Please offer inpatient rehab for his alcohol addiction. Besides that, the patient should be continued on Librium. We will follow up and advise accordingly. The patient might benefit from naltrexone for his alcohol cravings and Sonata for insomnia. Should you have any questions, give me a call back. Thank you very much for letting me participate in the care of your patient. Guerline Powell MD
[2018-08-17] MEDS: Piperacill/Tazo 4.5gm in NS 4.5 GM/100 ML BAG IVPB SCH (05:48)
[2018-08-17] MEDS: Albuterol-Ipratrop 3 mg / 0.5 (3 ml) UD IH PRN ×2 (05:50→08:17)
[2018-08-17 06:02] VITALS: O2SAT 97
[2018-08-17 07:28] LABS: HEMOGLOBIN 14.3 g/dL (14.0-18.0); MEAN CELL VOLUME 93.2 fl (80.0-105.0); MEAN CORPUSCULAR HEMOGLOBIN 31.4 pg (25.0-35.0); MEAN CORPUSCULAR HGB CONC 33.6 g/dl (31.0-37.0); MEAN PLATELET VOLUME 10.1 fl (7.0-11.0); RBC 4.56 10^6/uL (3.5-6.1); RED CELL DISTRIBUTION WIDTH 13.3 % (11.5-14.5); WHITE BLOOD COUNT 9.1 10^3/uL (4.5-11.0)
[2018-08-17 07:40] LABS: ALB/GLOB RATIO 1.4 (1.1-1.8); ALBUMIN 3.8 g/dL (3.0-4.8); ALT/SGPT 39 U/L (7-56); AST/SGOT 32 U/L (17-59); BLOOD UREA NITROGEN 18 mg/dL (7-21); CALCIUM 8.9 mg/dL (8.4-10.5); GFR NON-AFRICAN AMERICAN > 60
[2018-08-17] MEDS: Metoprolol Succinate 25 mg XL Tab PO SCH (10:00)
--- NOTE | 2018-08-17 11:49 | DS ---
HISTORY OF PRESENT ILLNESS: He is alert. He is comfortable sitting in bed. He is eating his breakfast. He is refusing medications now. He wants to go home. He is not being a cooperative patient. He is going to go home on Catapres, Lipitor, Norvasc, prednisone tapering dose, Singulair and metoprolol. All the other medications, we are going to stop. I discussed with him about not drinking anymore. He kindly looked at me and laughed. PHYSICAL EXAMINATION: VITAL SIGNS: He has a 98.1 temperature, 80 pulse, 131/74 blood pressure, 20 respiratory rate, 97% O2 sat. HEENT: Head is atraumatic, normocephalic. HEART: Regular rate. LUNGS: Decreased breath sounds. ABDOMEN: Soft. EXTREMITIES: No edema. LABORATORY DATA: He has a negative toxicology. Urine was negative. He has a 140 sodium, potassium 4.7, BUN 80, creatinine 1, GFR is greater than 60, sugar is 111, calcium is 8.9, total bili is 0.7. AST is 32, ALT 39, alk phos 47, total protein 6.5. White count 9.1, hemoglobin 14.3, hematocrit 42.5, platelets 120. He should follow up in the office in about a week and hopefully he will not go through this again and he is here for multiple reasons, COPD, alcohol withdrawal and DTs. Joseph Nolan DO
--- NOTE | 2018-08-17 12:06 | PN ---
DATE: 08/17/2018 SUBJECTIVE: The patient was seen today. The patient appears to be sleepy but easily arousable. The patient reported that he had a good night sleep. The patient denied being depressed. Denied any thoughts of harming himself or others. This food writer suggested family sessions as outpatient. The patient was open to that option. This food writer had prolonged conversation with Logistics Technician and case management yesterday. So far, the patient does not have any alcohol withdrawal symptoms, reported to feel much comfortable. No signs of psychosis. No signs of delirium. No signs of agitation, no signs of depression. PHYSICAL EXAMINATION: VITAL SIGNS: Stable. Temperature 98.1, pulse 80, blood pressure 131/74, respiration 20 and saturation is 97. MEDICATIONS: Reviewed. The patient is on DuoNeb, Norvasc, Lipitor, Librium 25 mg every 6 hours p.r.n. for alcohol withdrawal symptoms. So far, the patient got only four doses. The patient is on Catapres, Claritin, Ativan 0.5 mg IV push every 6 hours p.r.n. for anxiety, last dose was on 08/16/2018, Toprol, Singulair, prednisone, Zosyn, sodium chloride, Sonata 5 mg at the nighttime as needed for insomnia. The patient did not require daily Sonata. Labs reviewed. Toxicology reviewed. MENTAL STATUS EXAM: The patient appears to be sleepy but easily arousable. Fair eye contact. Speech was normal rate, tone, quality and quantity. Mood described as I am feeling better. Affect was reactive, mood congruent. Thought process was coherent and goal directed. Thought content, the patient denied visual, auditory, tactile hallucinations. Denied paranoid ideation. The patient denied thoughts of harming himself or others. Denied intent or plan. Insight and judgment seems to be improving. Impulses are well controlled. IMPRESSION: History of alcohol use disorder, recent relapse, rule out mood disorder due to general medical condition, rule out substance-induced mood disorder. PLAN: Continue current management. Continue current medication. The patient might benefit from naltrexone if the patient has cravings. Meanwhile, the patient is not depressed. The patient does not express any thoughts of harming himself or others. The patient is not agitated. The patient is not aggressive. The patient is not psychotic. Also, the patient verbalized interest to go to couple sessions. Discussed with the social work professor and case management. At present moment, the patient pose no imminent danger to self or others. This food writer will sign off. The patient offered inpatient rehab, but the patient expressed no interest to go there. I will sign off. Guerline Powell MD
[2018-08-17 12:08] VITALS: BP 133/85; PULSE 75; TEMP 97.5
== END 2018-08-17 13:41 | disposition home or self-care (01) | DRG 897 ==
LOC: ED 08:09 → ERH 14:23 → 2RSO 16:24
PROVIDERS: ADMIT Family Medicine; ATTEND Family Medicine
PROC: 3E0F7GC Introduction of Other Therapeutic Substance into Respiratory Tract, Via Natural or Artificial Opening (ICD-10-PCS; principal; 2018-08-15)
DX: F10.231 Alcohol dependence with withdrawal delirium (principal); J44.1 Chronic obstructive pulmonary disease with (acute) exacerbation; F06.30 Mood disorder due to known physiological condition, unspecified; I10 Essential (primary) hypertension; J01.90 Acute sinusitis, unspecified; R55 Syncope and collapse; J32.4 Chronic pansinusitis; H90.42 Sensorineural hearing loss, unilateral, left ear, with unrestricted hearing on the contralateral side; G47.30 Sleep apnea, unspecified; Z91.81 History of falling; Z87.891 Personal history of nicotine dependence